=== PATIENT | female | born 1955 | race Hispanic/Latino ===

== ENCOUNTER 2019-02-28 22:56 | Emergency (ER) | payer OTHER ==
[2019-03-01] MEDS ORDERED: AZITHROMYCIN 250 MG TAB ONE (00:25)
[2019-03-01] MEDS ORDERED: ONDANSETRON 4 MG (ODT) TAB ONE (00:26)
--- NOTE | 2019-03-01 00:26 | ER ---
Nurse's Notes [facility] Name: Suri Franco Age: 63 yrs Sex: Female : 1955 Arrival Date: 02/28/2019 Time: 23:00 Bed 15 Private MD: Devonte Lerner V Diagnosis: Dizziness. Sinusitis. Low back pain Presentation: 02/28 23:28 Presenting complaint: Patient states: she has been having dizzy spells the last couple bb of days usually she takes Claritan and it goes away but it is not going away today she is also having low back pain and thinks she may be developing a fever she is taking OTC cough and cold medication but just doesn't feel well in general. Transition of care: patient was not received from another setting of care. Onset of symptoms was February 26, 2019. Risk Assessment: Do you want to hurt yourself or someone else? Patient reports no desire to harm self or others. Initial Sepsis Screen: Does the patient meet any 2 criteria? No. Patient's initial sepsis screen is negative. Does the patient have a suspected source of infection? No. Patient's initial sepsis screen is negative. Care prior to arrival: None. 23:28 Method Of Arrival: Ambulatory bb 23:28 Acuity: HANSA 3 bb Historical: - Allergies: 23:32 unknown antibiotic; bb - Home Meds: 23:32 None [Active]; bb - PMHx: 23:32 Kidney stones; bb - PSHx: 23:32 ; Hysterectomy; Lithotripsy; Kidney stents; bb - Immunization history:: Adult Immunizations up to date. - Social history:: Smoking status: Patient/guardian denies using tobacco. - Ebola Screening: : No symptoms or risks identified at this time. Screenin:45 Abuse screen: Denies threats or abuse. Nutritional screening: No deficits noted. tr5 Tuberculosis screening: No symptoms or risk factors identified. Fall Risk None identified. Assessment: 23:45 General: Appears uncomfortable, Behavior is calm, cooperative. Pain: Complains of pain tr5 in left low back and right low back Pain does not radiate. Quality of pain is described as aching, Pain began gradually, Alleviated by repositioning, Aggravated by increased activity. Neuro: Level of Consciousness is awake, alert, Oriented to person, place, time, Stock Unloader are equal bilaterally Moves all extremities. Reports dizziness, since The last few days. Cardiovascular: Heart tones present Bruits absent Capillary refill < 3 seconds Pulses are all present. Edema is absent. Respiratory: Airway is patent Trachea midline Respiratory effort is even, unlabored, Respiratory pattern is regular, symmetrical, Breath sounds are clear bilaterally. GI: Reports lower abdominal pain. : No signs and/or symptoms were reported regarding the genitourinary system. EENT: No signs and/or symptoms were reported regarding the EENT system. Derm: No signs and/or symptoms reported regarding the dermatologic system. Skin is intact, Skin is dry, Skin is normal. Musculoskeletal: Capillary refill < 3 seconds, Range of motion: intact in all extremities. 03/01 01:02 Reassessment: Patient appears in no apparent distress at this time. Patient is alert, tr5 oriented x 3, equal unlabored respirations, skin warm/dry/pink. Patient denies pain at this time. Patient states feeling better. Vital Signs: 02/28 23:32 BP 167 / 78; Pulse 72; Resp 16 S; Temp 97.8(O); Pulse Ox 100% on R/A; Weight 52.16 kg bb (R); Height 4 ft. 11 in. (149.86 cm) (R); Pain 7/10; 23:32 Body Mass Index 23.23 (52.16 kg, 149.86 cm) bb ED Course: 23:00 Patient arrived in ED. cl3 23:01 Devonte Lerner MD is Private Physician. cl3 23:16 Minh Weinberg, RN is Primary Nurse. tr5 23:31 Triage completed. bb 23:32 Arm band placed on Patient placed in an exam room, on a stretcher, on pulse oximetry. bb 23:45 Placed in gown. Bed in low position. Side rails up X 1. Pulse ox on. NIBP on. Door tr5 closed. Noise minimized. 23:45 Urine collected: clean catch specimen, clear. tr5 03/01 00:06 Osvaldo Kebede MD is Attending Physician. pkl 00:26 Devonte Lerner MD is Referral Physician. pkl 01:04 No provider procedures requiring assistance completed. IV discontinued. tr5 Administered Medications: 00:27 Drug: Antivert 25 mg Route: PO; tr5 01:04 Follow up: Response: No adverse reaction tr5 00:27 Drug: Zithromax 500 mg Route: PO; tr5 01:04 Follow up: Response: No adverse reaction tr5 00:27 Drug: Zofran 4 mg Route: PO; tr5 01:03 Follow up: Response: Nausea is decreased tr5 Outcome: 00:26 Discharge ordered by . buzz 01:04 Discharged to home ambulatory. tr5 01:04 Condition: stable 01:04 Discharge instructions given to patient, Instructed on discharge instructions, follow up and referral plans. medication usage, Demonstrated understanding of instructions, follow-up care, medications, Prescriptions given X 3. 01:05 Patient left the ED. tr5 Signatures: Osvaldo Kebede MD MD pkl Ballard, Brenda, RN RN Minh Loja RN RN tr5 Eliz Maldonado cl3
--- NOTE | 2019-03-01 00:27 | EDPHYS ---
Physician Documentation [facility] Name: Suri Franco Age: 63 yrs Sex: Female : 1955 Arrival Date: 02/28/2019 Time: 23:00 Bed 15 Private MD: Devonte Lerner V ED Physician Osvaldo Kebede HPI: 03/01 00:17 This 63 yrs old Female presents to ER via Ambulatory with complaints of Back pkl Pain, Sinus Congestion. 00:17 The patient presents with dizziness, sense of spinning. Onset: The symptoms/episode pkl began/occurred 2 day(s) ago. Associated signs and symptoms: Pertinent positives: sinus congestion and back pain. Historical: - Allergies: 02/28 23:32 unknown antibiotic; bb - Home Meds: 23:32 None [Active]; bb - PMHx: 23:32 Kidney stones; bb - PSHx: 23:32 ; Hysterectomy; Lithotripsy; Kidney stents; bb - Immunization history:: Adult Immunizations up to date. - Social history:: Smoking status: Patient/guardian denies using tobacco. - Ebola Screening: : No symptoms or risks identified at this time. ROS: 03/01 00:17 Eyes: Negative for injury, pain, redness, and discharge, ENT: Negative for injury, pkl pain, and discharge, Neck: Negative for injury, pain, and swelling, Cardiovascular: Negative for chest pain, palpitations, and edema, Respiratory: Negative for shortness of breath, cough, wheezing, and pleuritic chest pain. Abdomen/GI: Positive for nausea. Back: Positive for pain at rest. : Negative for urinary symptoms. MS/extremity: Negative for acute changes. Skin: Negative for rash. Neuro: Positive for dizziness, Negative for altered mental status. Exam: 00:17 Head/Face: Normocephalic, atraumatic. Eyes: Pupils equal round and reactive to light, pkl extra-ocular motions intact. Lids and lashes normal. Conjunctiva and sclera are non-icteric and not injected. Cornea within normal limits. Periorbital areas with no swelling, redness, or edema. ENT: Nares patent. No nasal discharge, no septal abnormalities noted. Tympanic membranes are normal and external auditory canals are clear. Oropharynx with no redness, swelling, or masses, exudates, or evidence of obstruction, uvula midline. Mucous membranes moist. Neck: Trachea midline, no thyromegaly or masses palpated, and no cervical lymphadenopathy. Supple, full range of motion without nuchal rigidity, or vertebral point tenderness. No Meningismus. Chest/axilla: Normal chest wall appearance and motion. Nontender with no deformity. No lesions are appreciated. Cardiovascular: Regular rate and rhythm with a normal S1 and S2. No gallops, murmurs, or rubs. Normal PMI, no JVD. No pulse deficits. Respiratory: Lungs have equal breath sounds bilaterally, clear to auscultation and percussion. No rales, rhonchi or wheezes noted. No increased work of breathing, no retractions or nasal flaring. Abdomen/GI: Soft, non-tender, with normal bowel sounds. No distension or tympany. No guarding or rebound. No evidence of tenderness throughout. 00:17 Back: pain, that is mild, of the lower back, Straight leg raises: of both lower extremities does not illicit pain. 00:17 Musculoskeletal/extremity: Exam is negative for acute changes. 00:17 Skin: Exam negative for rash. 00:17 Neuro: Orientation: is normal, Mentation: is normal, Cranial nerves: grossly normal, Motor: is normal. Vital Signs: 02/28 23:32 BP 167 / 78; Pulse 72; Resp 16 S; Temp 97.8(O); Pulse Ox 100% on R/A; Weight 52.16 kg bb (R); Height 4 ft. 11 in. (149.86 cm) (R); Pain 7/10; 23:32 Body Mass Index 23.23 (52.16 kg, 149.86 cm) bb MDM: 03/01 00:07 Patient medically screened. pkl 00:25 Data reviewed: vital signs, nurses notes. pkl Administered Medications: 00:27 Drug: Antivert 25 mg Route: PO; tr5 01:04 Follow up: Response: No adverse reaction tr5 00:27 Drug: Zithromax 500 mg Route: PO; tr5 01:04 Follow up: Response: No adverse reaction tr5 00:27 Drug: Zofran 4 mg Route: PO; tr5 01:03 Follow up: Response: Nausea is decreased tr5 Disposition: 03/01/19 00:26 Discharged to Home. Impression: Dizziness. Sinusitis. Low back pain. - Condition is Stable. - Prescriptions for Antivert 25 mg Oral Tablet - take 1 tablet by ORAL route every 8 hours As needed; 20 tablet. Zofran 4 mg Oral Tablet - take 1 tablet by ORAL route every 12 hours As needed; 10 tablet. Zithromax Z- Grzegorz 250 mg Oral Tablet - take 1 tablet by ORAL route as directed for 5 days Day 1 - take two (2) tablets one time. Day 2, 3, 4 , 5 take one (1) tablet once daily.; 6 tablet. - Medication Reconciliation Form, Thank You Letter, Antibiotic Education, Prescription Opioid Use form. - Follow up: Devonte Lerner MD; When: 2 - 3 days; Reason: Re-evaluation by your physician. - Problem is new. - Symptoms have improved. Signatures: Osvaldo Kebede MD MD pkl Eual Nayak, RN RN bb Minh Weinberg RN RN tr5 Corrections: (The following items were deleted from the chart) 01:05 00:26 03/01/2019 00:26 Discharged to Home. Impression: Dizziness. Sinusitis. Low back tr5 pain. Condition is Stable. Forms are Medication Reconciliation Form, Thank You Letter, Antibiotic Education, Prescription Opioid Use. Follow up: Devonte Lerner; When: 2 - 3 days; Reason: Re-evaluation by your physician. Problem is new. Symptoms have improved. pkl
[2019-03-01] MEDS ORDERED: MECLIZINE HCL 12.5 MG TAB ONE (00:29)
[2019-03-01 01:47] VITALS: BP 167/78; TEMP 97.8; O2SAT 100
== END 2019-03-01 01:05 | disposition home or self-care (01) ==
LOC: ER 22:56
DX: J32.9 Chronic sinusitis, unspecified (principal); M54.5 Low back pain; R42 Dizziness and giddiness
CPT/HCPCS: 99284

== ENCOUNTER 2020-11-29 10:17 | Emergency (ER) | payer BC, OTHER ==
[2020-11-29 11:45] LABS: Urine Blood 3+ (Negative); Urine Glucose Negative (Negative); Urine Protein 2+ (Negative); Urine pH 7.5 (5.0-7.0)
[2020-11-29 12:01] LABS: Absolute Lymphocytes (CBC) 2.8 K/uL (0.7-4.9); Basophils % 1.2 % (0-1.3); Hematocrit 39.4 % (36.0-45.0); Lymphocytes % 34.2 % (15.3-44.8); MPV 10.1 fL (7.6-11.3); RBC Red Blood Cell Count 4.53 M/uL (3.86-4.86)
[2020-11-29 12:23] LABS: ALT/SGPT 33 U/L (12-78); AST/SGOT 20 U/L (15-37); Albumin 3.9 g/dL (3.4-5.0); Alkaline Phosphatase 93 U/L (45-117); BUN Blood Urea Nitrogen 14 mg/dL (7-18); Bicarbonate 28 mmol/L (21-32); Bilirubin Direct 0.1 mg/dL (0-0.2); Bilirubin Total 0.5 mg/dL (0.2-1.0); Glucose Level 89 mg/dL (74-106); Lipase 108 U/L (73-393); Potassium 3.8 mmol/L (3.5-5.1); Protein, Total 7.8 g/dL (6.4-8.2); Sodium Level 143 mmol/L (136-145)
[2020-11-29 12:32] LABS: Urine Bacteria <20 /HPF (<20); Urine RBC >50 /HPF (NONE SEEN)
[2020-11-29 12:33] LABS: Urine Amorphous Sediment 1+ /HPF (NONE SEEN); Urine Mucus LIGHT /HPF (NONE SEEN)
--- NOTE | 2020-11-29 12:59 | RAD REPORT ---
EXAM DESCRIPTION: CT - Stone Protocol - 11/29/2020 11:47 am CLINICAL HISTORY: hematuria, hx of kidney stones COMPARISON: Abdomen Pelvis W/Wo Contrast dated 06/18/2019 TECHNIQUE: Axial 3 mm thick images were obtained without oral or IV contrast. The [id number] span s the entirety of the system including uppermost abdomen and lung bases. All CT scans are performed using dose optimization technique as appropriate and may include automated exposure control or mA/KV adjustment according to patient size. FINDINGS: In the superior right renal pelvis there is an 11-12 mm calcification not clearly differen t from 2019 imaging. In the proximal right ureter there is a 12 millimeter stone. This was previously in the inferior aspect of the right renal pelvis on the 2019 study. There is mild hydronephrosis of the pelvis and calices proximal to the ureter stone. Distally the ureter is decompressed. No addition al right-sided ureteral calculi seen. No left-sided hydronephrosis. No left-sided stone identified. N o suspicious renal masses. Isodense masses and pyelonephritis are not excluded on a stone protocol CT scan. No significant adrenal finding. No urinary bladder suspicious finding. Imaged portions of the liver, spleen and pancreas show no suspicious findings on non-contrast imaging . No gallbladder or biliary tree abnormality identified. No suspicious bowel findings. No hernia, mass or bulky lymphadenopathy noted. No free air, free fluid or inflammatory stranding. No significant bony abnormality. IMPRESSION: Mild right-sided hydronephrosis secondary to a 12 mm stone in the proximal right ureter near the UPJ. This obstructing stone was previously in the inferior aspect of the right renal pelvis on the 2019 study. Nonobstructing 11-12 mm calcification in the superior aspect of the right renal pelvis not clearly di fferent from the 2019 study. Isodense masses and pyelonephritis are not excluded on stone protocol technique.
--- NOTE | 2020-11-29 13:58 | EDPHYS ---
Physician Documentation [facility] Name: Suri Franco Age: 65 yrs Sex: Female : 1955 Arrival Date: 11/29/2020 Time: 10:22 Bed 8 Private MD: Devonte Lerner V ED Physician Cameron La HPI: 11/29 12:11 This 65 yrs old Female presents to ER via Ambulatory with complaints of Blood rn in urine. 12:11 The patient presents with urinary symptoms, hematuria. Onset: The symptoms/episode rn began/occurred 3 day(s) ago. Modifying factors: The symptoms are alleviated by nothing, the symptoms are aggravated by urinating. Associated signs and symptoms: Pertinent positives: hematuria, Pertinent negatives: fever, urinary frequency. Severity of symptoms: At their worst the symptoms were mild, in the emergency department the symptoms are unchanged. The patient has experienced similar episodes in the past. The patient has not recently seen a physician. Reports hematuria for 3-4 days, has had before, has been related to kidney stones in past, has needed lithotripsy. No fever. No vomiting. Not as painful as other times with kidney stones. . Historical: - Allergies: 10:36 Augmentin; jd3 10:36 Keflex; jd3 10:36 codeine; jd3 - Home Meds: 10:36 None [Active]; jd3 - PMHx: 10:36 Kidney stones; jd3 - PSHx: 10:36 ; Hysterectomy; Lithotripsy; Kidney stents; jd3 - Immunization history:: Adult Immunizations up to date. - Social history:: Smoking status: Patient denies any tobacco usage or history of. - Family history:: not pertinent. - Hospitalizations: : No recent hospitalization is reported. ROS: 12:11 Constitutional: Negative for fever, chills, and weight loss, Eyes: Negative for injury, rn pain, redness, and discharge, Neck: Negative for injury, pain, and swelling, Cardiovascular: Negative for chest pain, palpitations, and edema, Respiratory: Negative for shortness of breath, cough, wheezing, and pleuritic chest pain, Abdomen/GI: + suprapubic abd pain Back: + low back pain : + hematuria MS/Extremity: Negative for injury and deformity, Neuro: Negative for headache, weakness, numbness, tingling, and seizure. Exam: 12:11 Constitutional: This is a well developed, well nourished patient who is awake, alert, rn and in no acute distress. Ambulatory to room without difficulty. Head/Face: Normocephalic, atraumatic. Eyes: Periorbital areas with no swelling, redness, or edema. Cardiovascular: Regular rate and rhythm. No pulse deficits. Respiratory: No increased work of breathing, no retractions or nasal flaring. Abdomen/GI: soft, non-tender Back: No spinal tenderness. No costovertebral tenderness. Skin: Warm, dry MS/ Extremity: Pulses equal, no cyanosis. Neuro: Awake and alert, GCS 15 Vital Signs: 10:36 BP 151 / 79; Pulse 75; Resp 16; Temp 97.4(TE); Pulse Ox 100% on R/A; Weight 52.16 kg jd3 (R); Height 4 ft. 11 in. (149.86 cm) (R); Pain 4/10; 13:45 BP 156 / 62; Pulse 72; Resp 16; Pulse Ox 100% ; bp 10:36 Body Mass Index 23.23 (52.16 kg, 149.86 cm) jd3 MDM: 11:10 Patient medically screened. rn 13:23 ED course: Called Dr. Rosas for consultation, no answer, will try again shortly.. rn 13:50 Differential diagnosis: kidney stone. Data reviewed: vital signs, nurses notes, laboratory aide test result(s), radiologic studies, CT scan, and as a result, I will discharge patient. 13:52 Counseling: I had a detailed discussion with the patient and/or guardian regarding: the rn historical points, exam findings, and any diagnostic results supporting the discharge/admit diagnosis, lab results, radiology results, the need for outpatient follow up, to return to the emergency department if symptoms worsen or persist or if there are any questions or concerns that arise at home. Response to treatment: the patient's symptoms have mildly improved after treatment, and as a result, I will discharge patient. Special discussion: I discussed with the patient/guardian in detail that at this point there is no indication for admission to the hospital. It is understood, however, that if the symptoms persist or worsen the patient needs to return immediately for re-evaluation. Based on the history and exam findings, there is no indication for further emergent testing or inpatient evaluation. I discussed with the patient/guardian the need to see the urologist for further evaluation of the symptoms. ED course: Consulted with Dr. Rosas, urology, states no indication for emergent stent, but will work her into office schedule for likely outpt stent tomorrow. Patient aware and comfortable with plan. . 11/29 11:21 Order name: Basic Metabolic Panel; Complete Time: 13:10 11/29 11:21 Order name: CBC with Diff; Complete Time: 13: 11/29 11:21 Order name: Hepatic Function; Complete Time: 13: rn 11/29 11:21 Order name: Lipase; Complete Time: 13: 11/29 11:21 Order name: Urine Culture 11/29 11:21 Order name: Urine Microscopic Only; Complete Time: 13: 11/29 11:21 Order name: IV Saline Lock; Complete Time: 11:47 11/29 11:21 Order name: Labs collected and sent; Complete Time: 11:46 11/29 11:21 Order name: CT Stone Protocol; Complete Time: 13: 11/29 11:21 Order name: Urine Dipstick-Ancillary (obtain specimen); Complete Time: 11:46 11/29 11:45 Order name: Urine Dipstick-Ancillary; Complete Time: 13:10 EDMS Administered Medications: 13:50 Drug: Magnesium Sulfate 1 grams Route: IVPB; Infused Over: 1 hrs; Site: right forearm; bp 13:50 Drug: Flomax (tamsulosin) 0.4 mg Route: PO; bp Disposition: 11/29/20 13:57 Discharged to Home. Impression: Hydronephrosis with renal and ureteral calculous obstruction - 12 mm stone, Hematuria, unspecified. - Condition is Stable. - Discharge Instructions: Hematuria, Adult, Kidney Stones, Hydronephrosis. - Medication Reconciliation Form, Thank You Letter, Antibiotic Education, Prescription Opioid Use form. - Work release form (11/29/20 14:52). ak2 - Follow up: Jeffrey Rosas MD; When: Tomorrow; Reason: Recheck today's complaints, Re-evaluation by your physician. - Problem is new. - Symptoms have improved. Signatures: Dispatcher [employer] EDMS Cameron La MD MD rn Davies, Jonathon, RN RN jd3 Jonas Valenzuela RN RN bp Denzel Casey ak2 Corrections: (The following items were deleted from the chart) 14:49 13:57 11/29/2020 13:57 Discharged to Home. Impression: Hydronephrosis with renal and ak2 ureteral calculous obstruction - 12 mm stone; Hematuria, unspecified. Condition is Stable. Forms are Medication Reconciliation Form, Thank You Letter, Antibiotic Education, Prescription Opioid Use. Follow up: Jeffrey Rosas; When: Tomorrow; Reason: Recheck today's complaints, Re-evaluation by your physician. Problem is new. Symptoms have improved. rn
--- NOTE | 2020-11-29 13:58 | ER ---
Nurse's Notes [facility] Name: Suri Franco Age: 65 yrs Sex: Female : 1955 Arrival Date: 11/29/2020 Time: 10:22 Bed 8 Private MD: Devonte Lerner V Diagnosis: Hydronephrosis with renal and ureteral calculous obstruction-12 mm stone;Hematuria, unspecified Presentation: 11/29 10:33 Chief complaint: Patient states: "I had kidney stones about 3 times and I peed blood. I jd3 am urinating blood again so i am concerned about it because it has lasted for 3 days now.". Coronavirus screen: At this time, the client does not indicate any symptoms associated with coronavirus-19. Ebola Screen: Patient negative for fever greater than or equal to 101.5 degrees Fahrenheit, and additional compatible Ebola Virus Disease symptoms. Initial Sepsis Screen: Does the patient meet any 2 criteria? No. Patient's initial sepsis screen is negative. Does the patient have a suspected source of infection? No. Patient's initial sepsis screen is negative. Risk Assessment: Do you want to hurt yourself or someone else? Patient reports no desire to harm self or others. Onset of symptoms was November 26, 2020. 10:33 Method Of Arrival: Ambulatory jd3 10:33 Acuity: HANSA 3 jd3 Triage Assessment: 11:24 General: Appears in no apparent distress. comfortable, Behavior is cooperative, bp appropriate for age, anxious. Pain: Denies pain. EENT: No deficits noted. Neuro: No deficits noted. Cardiovascular: No deficits noted. Respiratory: No deficits noted. GI: No signs and/or symptoms were reported involving the gastrointestinal system. : Reports HEMATURIA. Derm: No deficits noted. Musculoskeletal: No deficits noted. Historical: - Allergies: 10:36 Augmentin; jd3 10:36 Keflex; jd3 10:36 codeine; jd3 - Home Meds: 10:36 None [Active]; jd3 - PMHx: 10:36 Kidney stones; jd3 - PSHx: 10:36 ; Hysterectomy; Lithotripsy; Kidney stents; jd3 - Immunization history:: Adult Immunizations up to date. - Social history:: Smoking status: Patient denies any tobacco usage or history of. - Family history:: not pertinent. - Hospitalizations: : No recent hospitalization is reported. Screenin:25 Abuse screen: Denies threats or abuse. Denies injuries from another. Nutritional bp screening: No deficits noted. Tuberculosis screening: No symptoms or risk factors identified. Fall Risk None identified. Assessment: 11:25 General: SEE TRIAGE NOTE. bp 13:53 Reassessment: No changes from previously documented assessment. Patient and/or family bp updated on plan of care and expected duration. Pain level reassessed. D/C ON HOLD FOR IV MAG. Vital Signs: 10:36 BP 151 / 79; Pulse 75; Resp 16; Temp 97.4(TE); Pulse Ox 100% on R/A; Weight 52.16 kg jd3 (R); Height 4 ft. 11 in. (149.86 cm) (R); Pain 4/10; 13:45 BP 156 / 62; Pulse 72; Resp 16; Pulse Ox 100% ; bp 10:36 Body Mass Index 23.23 (52.16 kg, 149.86 cm) jd3 ED Course: 10:22 Patient arrived in ED. am2 10:22 Devonte Lerner MD is Private Physician. am2 10:35 Triage completed. jd3 10:38 Arm band placed on. jd3 11:09 Cameron La MD is Attending Physician. rn 11:22 Jonas Valenzuela, AYLA is Primary Nurse. bp 11:25 Patient has correct armband on for positive identification. Bed in low position. Call bp light in reach. Side rails up X2. 11:38 Inserted saline lock: 20 gauge in right forearm, using aseptic technique. Blood bp collected. 11:47 CT Stone Protocol In Process Unspecified. EDMS 13:56 Jeffrey Rosas MD is Referral Physician. rn 14:48 No provider procedures requiring assistance completed. IV discontinued. ak2 Administered Medications: 13:50 Drug: Magnesium Sulfate 1 grams Route: IVPB; Infused Over: 1 hrs; Site: right forearm; bp 13:50 Drug: Flomax (tamsulosin) 0.4 mg Route: PO; bp Outcome: 13:57 Discharge ordered by MD. rn 14:48 Discharged to home ambulatory. ak2 14:48 Condition: stable 14:48 Discharge instructions given to patient, Instructed on discharge instructions, follow up and referral plans. Demonstrated understanding of instructions, follow-up care. 14:49 Patient left the ED. ak2 Signatures: Dispatcher [employer] EDMS Cameron La MD MD rn Moreno, Amanda am2 Amado Iniguez RN RN jJonas Hogan RN RN Denzel Mcfarlane2 Corrections: (The following items were deleted from the chart) 10:35 10:33 Onset of symptoms was November 28, 2020 jd3 jd3 10:38 10:36 Pulse 75bpm; Resp 16bpm; Pulse Ox 100% RA; Temp 97.4F Temporal; 52.16 kg jd3 Reported; Height 4 ft. 11 in. Reported; BMI: 23.2; Pain 4/10; jd3
[2020-11-29] MEDS ORDERED: TAMSULOSIN 0.4 MG SR CAP ONE (14:04)
[2020-11-29] MEDS ORDERED: MAGNESIUM SULFATE 1 gm IVPB 1 GM/100 ML BAG IV ONE (14:04)
[2020-11-29 14:56] VITALS: TEMP 97.4; O2SAT 100
[2020-11-29 14:57] VITALS: BP 156/62
== END 2020-11-29 14:49 | disposition home or self-care (01) ==
LOC: ER 10:17
DX: N13.2 Hydronephrosis with renal and ureteral calculous obstruction (principal); Z87.442 Personal history of urinary calculi; Z88.1 Allergy status to other antibiotic agents; Z88.5 Allergy status to narcotic agent
CPT/HCPCS: 87088; 85025; 87086; 80048; 36415; 80076; 83690; 76377; 74176; 96374; 99284; J3475; 81003; 81015

== ENCOUNTER 2020-12-07 07:56 | Day surgery (SDC) | payer BC, OTHER ==
[2020-12-06 10:39] LABS: Basophils % 0.8 % (0-1.3); Hematocrit 40.4 % (36.0-45.0); MPV 9.7 fL (7.6-11.3); RBC Red Blood Cell Count 4.59 M/uL (3.86-4.86)
--- NOTE | 2020-12-06 10:41 | RAD REPORT ---
EXAM DESCRIPTION: Walker Tsang (2 Views)12/06/2020 10:28 am CLINICAL HISTORY: Preop for genitourinary surgery. COMPARISON: 2018 FINDINGS: The lungs appear clear of acute infiltrate. The heart is normal size IMPRESSION: No acute abnormalities displayed
[2020-12-06 10:50] LABS: Potassium 4.4 mmol/L (3.5-5.1)
[2020-12-07] MEDS ORDERED: Gentamicin Inj 120 MG in NA CHLORIDE 0.9% 100 ML IV ONE (08:00)
[2020-12-07] MEDS ORDERED: Ringers Lactate 1,000 ML IV ONE (08:56)
[2020-12-07] MEDS ORDERED: propofoL 200 MG/20 ML VIAL IV ONE (10:29)
[2020-12-07] MEDS ORDERED: MIDAZOLAM HCL 2 MG/2 ML INJ ONE (10:30)
[2020-12-07] MEDS ORDERED: FENTANYL CITR 100 MCG/2 ML ONE (10:30)
[2020-12-07] MEDS ORDERED: LIDOCAINE 1% MPF 5 ML VIAL ONE (10:30)
[2020-12-07] MEDS ORDERED: ONDANSETRON 4 MG/2 ML VIAL ONE (10:35)
[2020-12-07] MEDS ORDERED: dexAMETHasone 10 MG/ML VIAL ONE (10:35)
[2020-12-07] MEDS ORDERED: KETOROLAC 30 MG/ML INJ ONE (10:35)
[2020-12-07] MEDS ORDERED: PHENAZOPYRIDINE 100MG TAB PO ONE ×2 (10:45→12:25)
[2020-12-07] MEDS ORDERED: HYDROCODONE/APAP 5/325 MG TAB PO PRN (10:45)
--- NOTE | 2020-12-07 10:51 | RAD REPORT ---
EXAM DESCRIPTION: RAD - Urography Retrograde - 12/07/2020 10:37 am FINDINGS: There were 5 portable KUB images were obtained during fluoroscopic assisted placement of a stent. No suspicious or unexpected finding. Fluoro time was 9 seconds.
[2020-12-07] MEDS ORDERED: NALOXONE 0.4 MG/ML VIAL ONE (11:03)
--- NOTE | 2020-12-07 11:11 | OP ---
Surgeon: JUANJO GARCIA Preoperative Diagnoses: 1. Right obstructive ureterolithiasis. 2. Right nephrolithiasis. 3. Right hydronephrosis. Postoperative Diagnoses: 1. Right obstructive ureterolithiasis. 2. Right nephrolithiasis. 3. Right hydronephrosis. Principal Procedures: 1. Cystoscopy. 2. Right retrograde pyelography. 3. Right ureteral stent placement. Date of Procedure: 12/07/20 Indication For Procedure: Ms. Franco presented to the Urology Clinic where she was seen by nurse practitioner, Blanca, with complaints of gross hematuria. Imaging revealed the presence of obstructive ureteral calculi, and as a result the patient was recommended for operative evaluation via cystoscopy with management of her stones on the right side. Because the stones were 12 mm within the kidney and 8 mm within the proximal ureter, I recommended against definitive ureteroscopic management today and instead placement of a stent to allow the system to dilate to minimize the risk of injury due to the need to fragment over or approximately 20 mm of stone burden. Procedure In Detail: The patient was consented in the preoperative holding area before being transferred to the operative suite where general anesthesia using an LMA was induced. She was given gentamicin IV antimicrobial prophylaxis and pneumo boots were provided for DVT prophylaxis. She was placed in the lithotomy position, padded and secured to the table appropriately. Her genitalia were prepped using Hibiclens and she was draped in standard fashion. The case was begun using a 22-Syrian rigid cystoscope to traverse the urethra and into the bladder with ease. The bladder was then surveyed in its entirety, and there were no mucosal lesions, foreign bodies, or stones. There were micro hemorrhagic papules in the dome anterior region to the right, but these were not at all suspicious in appearance and were few and scattered. As a result, I identified the ureteral orifice, which was orthotopic within the trigone on the right side, and I cannulated it using the tip of a 5-Syrian ureteral access catheter. I then injected a 70:30 mixture of Omnipaque and saline and performed a retrograde pyelogram. Right retrograde pyelography: Using the contrast mixture and the 5-Syrian ureteral access catheter, the contrast mixture was injected and did evidence obstruction given its slow progression up a dilated distal into a mid and proximal ureter before encountering a radio-opaque calculus in the proximal ureter. An additional calculus was noted within the upper pole of the kidney and was also visible fluoroscopically. Contrast did enter a very dilated renal pelvis with pelviectasis and evidence of caliectasis. As a result, I did pass a Sensor wire via the 5-Syrian ureteral access catheter into the upper pole of the kidney where a coil was observed fluoroscopically. Over the Sensor wire, I passed a 6- Syrian by 24 cm double-J right ureteral stent with a coil observed fluoroscopically in the upper pole and 1 cystoscopically within the bladder. Her bladder was then decompressed of fluid and urine, and the scope was removed. She was taken out of the lithotomy position, awakened from general anesthesia, transferred to a stretcher, and then transferred to the recovery room in good condition. Complications: None. Discharge Disposition: She should follow up in the Urology Clinic with nurse practitioner, Blanca or myself to discuss next steps. I believe she would be a reasonable candidate for shockwave lithotripsy/ESWL since both calculi are of significant size and are radio-opaque. She should be informed of the 85% success usually associated with the stones, however should she elect to proceed with definitive ureteroscopy that is completely reasonable as well. CHELLE/RENETTA Voice ID: [id number] Report ID: [id number] KIMBERLY
[2020-12-07 12:38] VITALS: BP 155/72; TEMP 96.6; O2SAT 98
[2020-12-07] MEDS ORDERED: TRAMADOL HCL 50 MG TAB ONE (12:42)
== END 2020-12-07 13:10 | disposition home or self-care (01) ==
LOC: OR 07:56
PROVIDERS: ATTEND Urology
PROC: 0T768DZ Dilation of Right Ureter with Intraluminal Device, Via Natural or Artificial Opening Endoscopic (ICD-10-PCS; principal; 2020-12-07 09:15)
DX: N13.2 Hydronephrosis with renal and ureteral calculous obstruction (principal); Z20.822 Contact with and (suspected) exposure to COVID-19
CPT/HCPCS: 93005; 87088; 85025; 87086; 80048; 36415; 85610; 85730; 71046; 74420; 52332; U0003; J2704; J2310; J1580; J2250; J3010; J1100; J7120; J2405

== ENCOUNTER 2021-01-25 08:50 | Day surgery (SDC) | payer BC ==
[~2021-01-25 08:50] MED LIST: Gentamicin Inj 120 MG in NA CHLORIDE 0.9% 100 ML IVPB SCH
[2021-01-25] MEDS ORDERED: Ringers Lactate 1,000 ML IV ONE (09:24)
[2021-01-25] MEDS ORDERED: FENTANYL CITR 100 MCG/2 ML ONE (09:37)
[2021-01-25] MEDS ORDERED: MIDAZOLAM HCL 2 MG/2 ML INJ ONE (09:37)
[2021-01-25] MEDS ORDERED: LIDOCAINE 2% MPF 5 ML VIAL ONE (09:37)
[2021-01-25] MEDS ORDERED: propofoL 200 MG/20 ML VIAL IV ONE (09:37)
[2021-01-25] MEDS ORDERED: ONDANSETRON 4 MG/2 ML VIAL ONE (09:39)
[2021-01-25] MEDS ORDERED: dexAMETHasone 10 MG/ML VIAL ONE (09:39)
[2021-01-25] MEDS ORDERED: CODEINE 30MG/APAP 300MG TAB PO PRN (10:53)
[2021-01-25] MEDS ORDERED: EPHEDRINE SULF 50 MG/ML VIAL ONE (11:20)
[2021-01-25] MEDS: HYDROMORPHONE HCL 1 MG/ML INJ ONE ×2 (11:43→11:53)
[2021-01-25] MEDS ORDERED: TRAMADOL HCL 50 MG TAB PO ONE ×2 (12:06→12:55)
[2021-01-25 12:44] VITALS: BP 154/67; TEMP 97.2; O2SAT 99
[2021-01-25] MEDS ORDERED: TRAMADOL HCL 50 MG TAB ONE (13:15)
--- NOTE | 2021-01-26 08:19 | OP ---
Date of Procedure: 01/25/2021 Surgeon: JUANJO GARCIA Preoperative Diagnosis: Right nephroureterolithiasis. Postoperative Diagnosis: Right nephroureterolithiasis Principle Procedure: Right extracorporeal shockwave lithotripsy. Indication For Procedure: Ms. Franco presented to the Urology Clinic with an obstructing 12 mm right ureteral calculus. She underwent right ureteral stent placement at the end of November due to persistent pain and the associated presence of an additional 12 mm calculi in the kidney. Because of the exten sive stone burden, a stent was recommended to be placed first with subsequent definitive treatment th ereafter. She presents today for right ESWL, and we will start with the ureteral calculus first. Procedure In Detail: The patient was consented in the preoperative holding area before being transfe rred to the operative suite where general anesthesia was induced. She was given gentamicin 120 mg IV antimicrobial prophylaxis because of her allergy to penicillin. Pneumoboots were provided for DVT p rophylaxis. She was placed supine on the shockwave lithotripsy table, padded, and secured appropriat ari. A fluid bath was placed beneath her flank region, and the stone in the right ureter was targete d. Of note, the stone which was previously at the body of L3, had descended along the stent down to the body of L4. Initial shockwave lithotripsy was then begun at low power and increasing the power a nd the rate over time to an average power setting of 5.5 with occasional bouts of treatment at 6 and a brief treatment period at 7. Because of ectopy that was noted with her being treated at a power se tting of 7, the power was back down to 5.5. Interval reassessment was performed at 1000 shocks, 1650 shocks, 2000 shocks, and again, at 2500 shocks. The stone was noted to fragment significantly, alth ough it is unclear if it completely fragmented. As such, after a delivery of 2500 shocks, additional treatment of the stone in the kidney would be planned for a later time. As a result, the patient wa s awakened from general anesthesia, transferred to a stretcher, and then transferred to the recovery room in good condition. Complications: None. Discharge Disposition: She will follow up in the Urology Clinic with nurse practitioner, kulwant Rios here an interval assessment may be made with a KUB; however, since she still has a 12 mm calculus wit hin the kidney and will require definitive management of this, and because repeat stone treatment ope ratively will be required, she should be rescheduled for either right ESWL if the stone in the ureter has been completely treated, this to treat the kidney stone, or alternatively, we could plan right u reteroscopy with laser lithotripsy and stent exchange at that time. The difference being the likelih ood of definitive resolution of the stone burden via ureteroscopy being over 95%, whereas that of [place] ckwave lithotripsy of the stone in the kidney if the stone in the ureter has been successfully treate d already, would be approximately 85%. CHELLE/RENETTA Voice ID: [id number] Report ID: [id number]
== END 2021-01-25 14:00 | disposition home or self-care (01) ==
LOC: OR 08:50
PROVIDERS: ATTEND Urology
PROC: 0TF6XZZ Fragmentation in Right Ureter, External Approach (ICD-10-PCS; principal; 2021-01-25 10:30)
DX: N20.2 Calculus of kidney with calculus of ureter (principal)
CPT/HCPCS: 50590; 87086; 87088; J1100; J1170; J1580; J2250; J2405; J2704; J3010; J7120

== ENCOUNTER → 2021-02-15 | Day surgery (SDC) | payer BC, OTHER ==
[~2021-02-15] MED LIST changes: +CLINDAMYCIN INJ 600 MG in NA CHLORIDE 0.9% 50 ML IV ONE; +CODEINE 30MG/APAP 300MG TAB PO PRN; +FENTANYL CITR 100 MCG/2 ML ONE; +Gentamicin Inj 120 MG in NA CHLORIDE 0.9% 100 ML IV ONE; -Gentamicin Inj 120 MG in NA CHLORIDE 0.9% 100 ML IVPB SCH; +LIDOCAINE 1% MPF 5 ML VIAL ONE; +MIDAZOLAM HCL 2 MG/2 ML INJ ONE; +Mastisol Adhesive Liq ONE; +ONDANSETRON 4 MG/2 ML VIAL ONE; +PHENAZOPYRIDINE 100MG TAB PO ONE; +Phenylephrine HCl 10 MG/ML 1 ML VIAL ONE; +Ringers Lactate 1,000 ML IV ONE; +propofoL 200 MG/20 ML VIAL IV ONE
[2021-02-15] MEDS: MORPHINE 4 MG/ML SYR ONE ×2 (15:20→15:30)
--- NOTE | 2021-02-15 15:20 | RAD REPORT ---
EXAM DESCRIPTION: RAD - Urography Retrograde - 02/15/2021 3:00 pm CLINICAL HISTORY: STENT COMPARISON: Urography Retrograde dated 12/07/2020 FINDINGS: Total fluoro time: 15 seconds
--- NOTE | 2021-02-15 15:49 | OP ---
Date of Procedure: 02/15/2021 Surgeon: JUANJO GARCIA Preoperative Diagnosis: Right nephrolithiasis. Postoperative Diagnosis: Right nephroureterolithiasis. Principle Procedures: 1.Cystoscopy. 2.Right ureteroscopy with laser lithotripsy. 3.Right ureteral stent exchange. Indication For Procedure: Ms. Franco presented to the Urology Clinic yesterday having undergone a pr ior ESWL of a large proximal ureteral calculus with successful fragmentation. She complained of pers istent discomfort associated with the stent, but no fever or chills or significant dysuria. She simp ly wanted to know if the procedure could be expedited and so she was scheduled for today. Procedure In Detail: The patient was consented in the preoperative holding area before being transfe rred to the operative suite where general anesthesia was induced. She was given clindamycin and gent amicin 140 mg IV antimicrobial prophylaxis given her penicillin allergy. Pneumo boots were provided for DVT prophylaxis. She was in the lithotomy position, padded and secured to the table appropriatel y. Her genitalia were prepped using Hibiclens and draped in standard fashion. The case was begun us ing a 22-Omani rigid cystoscope to traverse the urethra and into the bladder with ease. The bladder was surveyed, and no obvious mucosal lesions, foreign bodies or stones were noted. The right ureter al stent was noted to emanate from the right ureteral orifice and the coil was grasped and delivered to the meatus with ease. The tip of the stent remained within the proximal ureter, and a Sensor wire was passed via the stent and did coil in the putative upper pole of the kidney as observed fluorosco pically. I then passed a ureteral access sheath over the indwelling safety wire and was able to darshan gate it all the way into the renal pelvis. I then performed a retrograde pyelogram confirming approp riate localization of the contrast within the pelvis and calices. The stone was fluoroscopically vis ible within the upper pole calyceal distribution. Then, I passed a flexible ureteroscope via the ure teral access sheath into the upper pole of the kidney and identified the stone, which was about 11 mm in diameter essentially emanating from an interpolar calyceal region as a large Amol's plaque. I then was able to quickly fragment the stone into dust and released off its Amol's plaque location using a holmium laser fiber at a power setting 0.8 joules and 15 hertz. I then surveyed the remaind er of the calices, and no additional stones were noted. The renal pelvis was also free of any signif icant stone fragments, and so I surveyed into the proximal ureter and within the proximal mid ureter medially, there was a remnant linear calcification about 6 mm in length by 1 mm in diameter likely re sidual from the prior shockwave lithotripsy of the stone in that region. I was able to dislodge that stone debris from its area within the mid proximal ureter and was able to finagle it to come out of the ureteral access sheath with irrigation. Once this was done, I then again surveyed into the renal pelvis and calices and back out the ureter for any additional significant stone fragments, and when none were noted, ureteroscopy and laser lithotripsy were discontinued. I then passed a Sensor wire i nto the upper pole via the ureteroscope under direct vision, and removed the ureteroscope leaving the Sensor wire in place. I then back-loaded the cystoscope over the indwelling Sensor wire and passed a 6-Omani by 24 cm double-J right ureteral stent. The stent was left on its tether, and a coil was observed fluoroscopically within the kidney. An additional coil was formed in the bladder and the te ther was secured to her introitus using Mastisol and Steri-Strips. Her bladder was decompressed and the patient was taken out of the lithotomy position. She was awakened from general anesthesia, trans ferred to a stretcher, and then transferred to the recovery room in good condition. Complications: None. Discharge Disposition: She should follow up in the Urology Clinic with nurse practitionerBlanca next week for tethered ureteral stent removal. As she is a recurrent stone former, she should underg o metabolic stone analysis with 2 x 24-hour urine study and blood work to decipher why she formed stone s and prohibited. WR/MODL Voice ID: [id number] Report ID: [id number]
[2021-02-15] MEDS: HYDROMORPHONE HCL 1 MG/ML INJ ONE ×2 (16:00→16:05)
[2021-02-15 16:05] VITALS: TEMP 97
[2021-02-15 16:46] VITALS: BP 130/77; O2SAT 99
== END | disposition home or self-care (01) ==
LOC: OR 08:22
PROVIDERS: ATTEND Urology
PROC: 0T768DZ Dilation of Right Ureter with Intraluminal Device, Via Natural or Artificial Opening Endoscopic (ICD-10-PCS; 2021-02-15)
PROC: 0TF68ZZ Fragmentation in Right Ureter, Via Natural or Artificial Opening Endoscopic (ICD-10-PCS; principal; 2021-02-15 12:30)
DX: N20.0 Calculus of kidney (principal); E78.5 Hyperlipidemia, unspecified; Z20.822 Contact with and (suspected) exposure to COVID-19; Z88.0 Allergy status to penicillin; Z88.3 Allergy status to other anti-infective agents; Z88.1 Allergy status to other antibiotic agents
CPT/HCPCS: 88300; 82360; 74420; 52356; U0003; J2704; J2370; J1580; J2250; J3010; J1170; J7120 ×2; J2405

== ENCOUNTER 2022-01-08 12:19 | Emergency (ER) | payer BC, OTHER ==
--- OUTSIDE RECORDS SUMMARY | 2022-01-08 12:23 | XMS REPORT | Continuity of Care Document ---
:1955 Author Organization [facility] t Address [address] [place] [address] Care Team Providers Name Role Phone GENO Primary Care Physician Unavailable Parish IVERSON Attending Clinician Unavailable Zayra CANALES L Attending Clinician Parish IVERSON Admitting Clinician Unavailable Payers Payer Name Policy Type Policy Number Effective Date Expiration Date S [facility] - [id number] 2020 00:00:00 OUT OF STATE Problems Condition Condition Condition Status Onset Resolution Last Treating Co mments Source Name Details Category Date Date Treatment Clinician Date No known No known Disease Unive rs active active ity of problems problems [facility] Allergies, Adverse Reactions, Alerts Allergy Allergy Status Severity Reaction(s) Onset Inactive Treating Comm ents Source Name Type Date Date Clinician AMOXICIL DRUG Active N/V Univers JAY JAY-POT 08-04 ity of CLAVULAN 00:00: [place] ATE 00 [facility] CODEINE DRUG Active ITCHING Univers INGREDI - ity of 00:00: [place] 00 [facility] CEPHALEX DRUG Active Other-Cmnt Univ ers IN INGREDI 08-04 ity of 00:00: [address] NO KNOWN Drug Active Univers ALLERGIE Class ity of S [facility] Social History Social Habit Start Date Stop Date Quantity Comments Source Exposure to Not sure [facility] SARS-CoV-2 (event) Medica l Branch Sex Ass[birth year] [facility] [place] 00:00:00 00:00:00 Medical [place] Smoking Status Start Date Stop Date Source Unknown if ever smoked [facility] Medical Branch Medications Ordered Filled Start Stop Current Ordering Indication Dosage Frequency Signature Comments Components Source Medication Medication Date Date Medication? Clinician (SIG) Name Name metroNIDAZO 2020-07 Yes Univer s LE 500 mg 2-01 ity of tablet 00:00: [address] metroNIDAZO 2020-07 Yes Univer s LE 500 mg 2-01 ity of tablet 00:00: [address] metroNIDAZO 2020-07 Yes Univer s LE 500 mg 2-01 ity of tablet 00:00: [address] famotidine 2020-07 Yes Univers 20 mg 1-15 ity of tablet 00:00: [address] gabapentin 2020-07 Yes Univers 100 mg 1-15 ity of capsule 00:00: [address] omeprazole 2020-07 Yes Univers 20 mg 1-15 ity of capsule 00:00: [address] famotidine 2020-07 Yes Univers 20 mg 1-15 ity of tablet 00:00: [address] gabapentin 2020-07 Yes Univers 100 mg 1-15 ity of capsule 00:00: [address] omeprazole 2020-07 Yes Univers 20 mg 1-15 ity of capsule 00:00: [address] famotidine 2020-07 Yes Univers 20 mg 1-15 ity of tablet 00:00: [address] gabapentin 2020-07 Yes Univers 100 mg 1-15 ity of capsule 00:00: [address] omeprazole 2020-07 Yes Univers 20 mg 1-15 ity of capsule 00:00: [address] metoclopram 2020-07 Yes Univer s rosio HCl 10 0-19 ity of mg tablet 00:00: [address] SUTAB 2020-07 Yes Univers 1.479-0.188 0-19 ity of - 0.225 00:00: [facility] Medical Branch metoclopram 2020-07 Yes Univer s rosio HCl 10 0-19 ity of mg tablet 00:00: [address] SUTAB 2020-07 Yes Univers 1.479-0.188 0-19 ity of - 0.225 00:00: [place] gram Tab 00 [facility] Branch metoclopram 2020-07 Yes Univer s rosio HCl 10 0-19 ity of mg tablet 00:00: [place] 00 [facility] Branch SUTAB 2020-07 Yes Univers 1.479-0.188 0-19 ity of - 0.225 00:00: [place] gram Tab 00 Medical Branch Vital Signs Vital Name Observation Time Observation Value Comments Source Systolic blood 2021-06-23 14:24:00 151 mm[Hg] Univer sity [facility] Diastolic blood 2021-06-23 14:24:00 77 [facility]Hg[facility] 2021-06-23 14:24:00 82 /min [facility] Body height 2021-06-23 14:24:00 149.9 cm [facility] Body weight 2021-06-23 14:24:00 51.71 kg [facility] BMI 2021-06-23 14:24:00 23.03 kg/m2 [facility] Procedures This patient has no known procedures. Encounters Start End Encounter Admission Attending Care Care Encounter Source Date/Time Date/Time Type Type Clinicians Facility Department ID 2021-08-17 Outpatient STLMLC STLMLC [id number] Common 13:31:51 [id number] [facility] 2021-08-17 Outpatient STLMLC STLMLC [id number] Common 13:25:38 [id number] [facility] 2021-08-17 Outpatient STLMLC STLMLC [id number] Common 13:03:46 [id number] [facility] 2021-08-17 Outpatient STLMLC STLMLC [id number] Common 13:02:06 [id number] [facility] 2021-08-04 2021-08-04 Outpatient Mandy IVERSON [facility] [id number] Univers 10:45:00 10:45:00 DIPTI [id number] [facility] 2021-08-04 2021-08-04 Outpatient Mandy IVERSON [facility] [id number] Univers 10:45:00 [facility]45[facility] 2021-07-28 Outpatient R ZAYRA [facility] [id number] Univers 10:00:00 10:00:00 DIPTI alfred [facility] 2021-07-28 2021-07-28 Outpatient R IVERSON, [facility] [id number] Univers 10:00:00 10:00:00 [id number]-07-[facility] 2021-07-28 Outpatient R ZAYRA [facility] [id number] Univers 10:00:00 10:00:00 DIPTI alfred [facility] 2021-07-20 2021-07-20 Outpatient Mandy ZAYRA [facility] [id number] Univers 10:57:21 23:59:00 DIPTI [facility] 2021-07-20 2021-07-20 [facility] [id number] Univers 10:57:21 23:59:00 Encounter Dipti Lugo [place] [id number] [facility] [id number] [facility] [id number] [facility] 804 Branch 2021-07-20 2021-07-20 Outpatient R ZAYRA [facility] [id number] Univers 11:00:00 11:00:00 DIPTI [id number] [facility] 2021-07-12 2021-07-12 Outpatient Mandy IVERSON [facility] [id number] Univers 13:00:00 13:00:00 DIPTI [id number] [facility] 2021-07-12 2021-07-12 Outpatient Mandy IVERSON [facility] [id number] Univers 00:00:00 00:00:00 DIPTI [facility] 2021-07-08 2021-07-08 Outpatient R ZAYRA [facility] [id number] Univers 10:00:00 10:00:00 DIPTI [id number] [facility] 2021-07-08 2021-07-08 Outpatient Mandy IVERSON [facility] [id number] Univers 00:00:00 00:00:00 DIPTI [facility] 2021-06-23 2021-06-23 Outpatient R ZAYRA [facility] [id number] [facility] 08:30:00 23:59:00 DIPTI osborne [facility] 2021-06-23 2021-06-23 Office Zayra [facility] [id number] [facility] 08:20:02 08:59:25 Visit Dipti [facility] [id number] it y of [place] [id number] Ivan as NAIDA?BLEA [id number] Dc adelaide BURDEN [address] [place] [address] MEDICAL OFFICE BUILDING Results This patient has no known results.
[2022-01-08 12:57] LABS: Urine Blood 1+ (Negative); Urine Glucose Negative (Negative); Urine Protein Negative (Negative)
[2022-01-08 13:02] LABS: Absolute Lymphocytes (CBC) 2.4 K/uL (0.7-4.9); Hematocrit 41.8 % (36.0-45.0); Lymphocytes % 23.4 % (15.3-44.8); MPV 9.5 fL (7.6-11.3)
[2022-01-08 13:07] LABS: Urine Bacteria <20 /HPF (<20); Urine Mucus LIGHT /HPF (NONE SEEN); Urine RBC <5 /HPF (NONE SEEN)
[2022-01-08 13:19] LABS: Albumin 3.9 g/dL (3.4-5.0); Bilirubin Total 0.9 mg/dL (0.2-1.0); Potassium 3.7 mmol/L (3.5-5.1); Protein, Total 8.4 g/dL (6.4-8.2); Troponin High Sensitivity 4.1 pg/mL (<58.9)
[2022-01-08] MEDS ORDERED: NA CHLORIDE 0.9% 1,000 ML ONE (13:52)
[2022-01-08] MEDS ORDERED: ONDANSETRON 4 MG/2 ML VIAL ONE (13:52)
[2022-01-08] MEDS ORDERED: MORPHINE 4 MG/ML SYR ONE (13:52)
--- NOTE | 2022-01-08 14:02 | RAD REPORT ---
EXAM DESCRIPTION: CTAbdomen Pelvis W Contrast - 01/08/2022 1:52 pm CLINICAL HISTORY: LUQ abdominal pain COMPARISON: Stone Protocol dated 11/29/2020 TECHNIQUE: CT of the abdomen and pelvis was performed. All CT scans are performed using dose optimization technique as appropriate and may include automated exposure control or mA/KV adjustment according to patient size. FINDINGS: Lower chest: No acute abnormality. Small hiatal hernia Liver: No acute abnormality or suspicious lesions. Biliary: No biliary ductal dilatation. Stomach: No significant focal abnormality. Duodenum: No significant focal abnormality. Pancreas: No significant abnormality. Spleen: No significant abnormality. Adrenal: No suspicious lesions. Kidney/ureter: No hydronephrosis. No renal calculi. Retroperitoneum: No retroperitoneal adenopathy. Vascular: No aneurysm. Atherosclerosis. Bowel: Sigmoid diverticulitis. No perforation or abscess.. Peritoneum: No ascites or free air. Bladder: Grossly unremarkable. Reproductive: No adnexal masses. Bones: No acute fracture. Multilevel degenerative changes are present in the spine. Other: n/a IMPRESSION: Non perforated sigmoid diverticulitis.
[2022-01-08] MEDS ORDERED: CIPROFLOXACIN 400mg IV 400 MG/200 ML BAG IV ONE (14:49)
[2022-01-08] MEDS ORDERED: METRONIDAZOLE 500mg IVPB 500 MG/100 ML BAG IV ONE (14:49)
--- NOTE | 2022-01-08 15:10 | EDPHYS ---
Physician Documentation [facility] Name: Suri Franco Age: 66 yrs Sex: Female : 1955 Arrival Date: 01/08/2022 Time: 12:21 Bed 14 Private MD: Devonte Lerner V ED Physician Sheri Champion HPI: 01/08 13:35 This 66 yrs old Female presents to ER via Ambulatory with complaints of ma2 Abdominal Pain. 13:35 Onset: The symptoms/episode began/occurred gradually, 2 day(s) ago. Associated signs ma2 and symptoms: Pertinent negatives: anorexia, constipation, dysuria, headache, vomiting, vomiting blood. Severity of pain: At its worst the pain was moderate in the emergency department the pain is unchanged. Historical: - Allergies: 12:39 Augmentin; ss 12:39 Codeine; ss 12:39 Keflex; ss - PMHx: 12:39 Kidney stones; ss - Immunization history:: Adult Immunizations up to date. - Social history:: Patient/guardian denies using alcohol, street drugs, The patient lives with family, with spouse, Smoking status: Patient denies any tobacco usage or history of. - Family history:: not pertinent. ROS: 13:35 Constitutional: Negative for fever, chills, and weight loss. ma2 13:35 All other systems are negative. Exam: 13:35 Constitutional: This is a well developed, well nourished patient who is awake, alert, ma2 and in no acute distress. ENT: Nares patent. No nasal discharge, no septal abnormalities noted. Tympanic membranes are normal and external auditory canals are clear. Oropharynx with no redness, swelling, or masses, exudates, or evidence of obstruction, uvula midline. Mucous membranes moist. Neck: Trachea midline, no thyromegaly or masses palpated, and no cervical lymphadenopathy. Supple, full range of motion without nuchal rigidity, or vertebral point tenderness. No Meningismus. Chest/axilla: Normal chest wall appearance and motion. Nontender with no deformity. No lesions are appreciated. Cardiovascular: Regular rate and rhythm with a normal S1 and S2. No gallops, murmurs, or rubs. Normal PMI, no JVD. No pulse deficits. Respiratory: Lungs have equal breath sounds bilaterally, clear to auscultation and percussion. No rales, rhonchi or wheezes noted. No increased work of breathing, no retractions or nasal flaring. Abdomen/GI: Soft, non-tender, with normal bowel sounds. No distension or tympany. No guarding or rebound. No evidence of tenderness throughout. Back: No spinal tenderness. No costovertebral tenderness. Full range of motion. Skin: Warm, dry with normal turgor. Normal color with no rashes, no lesions, and no evidence of cellulitis. MS/ Extremity: Pulses equal, no cyanosis. Neurovascular intact. Full, normal range of motion. Neuro: Awake and alert, GCS 15, oriented to person, place, time, and situation. Cranial nerves II-XII grossly intact. Motor strength 5/5 in all extremities. Sensory grossly intact. Cerebellar exam normal. Normal gait. Vital Signs: 12:38 BP 112 / 74; Pulse 74; Resp 16; Temp 97.8(TE); Pulse Ox 98% on R/A; Weight 51.71 kg; ss Height 4 ft. 11 in. (149.86 cm); Pain 7/10; 14:00 BP 112 / 72; Pulse 75; Resp 16; Pulse Ox 98% on R/A; ph 15:30 BP 110 / 72; Pulse 78; Resp 18; Pulse Ox 99% on R/A; ph 16:40 BP 108 / 72; Pulse 76; Resp 18; Temp 98.0; Pulse Ox 99% on R/A; ph 12:38 Body Mass Index 23.02 (51.71 kg, 149.86 cm) MDM: 13:33 Patient medically screened. wi2 13:35 Differential diagnosis: gastroesophageal reflux disease, Irritable bowel syndrome, ma2 pancreatitis. 15:09 Data reviewed: vital signs, nurses notes. Counseling: I had a detailed discussion with ma2 the patient and/or guardian regarding: the historical points, exam findings, and any diagnostic results supporting the discharge/admit diagnosis, the presence of at least one elevated blood pressure reading (>120/80) during this emergency department visit, the need for outpatient follow up. Response to treatment: the patient's symptoms have markedly improved after treatment. 01/08 12:31 Order name: CBC with Diff; Complete Time: 14:09 [facility] 01/08 12:31 Order name: CMP; Complete Time: 14:09 [facility] 01/08 12:31 Order name: Lipase; Complete Time: 14:09 [facility] 01/08 12:31 Order name: Urine Microscopic Only; Complete Time: 14:09 [facility] 01/08 12:31 Order name: Troponin High Sensitivity; Complete Time: 14:09 [facility] 01/08 12:57 Order name: Urine Dipstick-Ancillary; Complete Time: 14:09 [facility] 01/08 12:31 Order name: IV Saline Lock; Complete Time: 12:51 [facility] 01/08 13:10 Order name: Urine Culture [facility] 01/08 13:24 Order name: CT Abd/Pelvis - IV Contrast Only; Complete Time: 14:09 [facility] 01/08 12:31 Order name: Labs collected and sent; Complete Time: 12:51 [facility] 01/08 12:31 Order name: Urine Dipstick-Ancillary (obtain specimen); Complete Time: 12:59 ma2 Administered Medications: 14:18 Drug: NS 0.9% 1000 ml Route: IV; Rate: 1 bolus; Site: right antecubital; ph 16:42 Follow up: IV Status: Completed infusion ph 14:18 Drug: Zofran (Ondansetron) 4 mg Route: IVP; Site: right antecubital; ph 14:57 Follow up: Response: No adverse reaction ph 14:20 Drug: morphine 4 mg Route: IVP; Infused Over: 4 mins; Site: right antecubital; ph 14:55 Follow up: Response: No adverse reaction ph 14:55 Drug: Cipro (ciprofloxacin) 400 mg Volume: 200 ml; Route: IVPB; Infused Over: 60 mins; ph Site: right antecubital; 16:38 Follow up: Response: No adverse reaction; IV Status: Completed infusion ph 15:27 Drug: Flagyl (metroNIDAZOLE) 500 mg Volume: 100 ml; Route: IVPB; Rate: 200 ml/hr; ph Infused Over: 30 mins; Site: right antecubital; 16:38 Follow up: Response: No adverse reaction; IV Status: Completed infusion ph Disposition Summary: 01/08/22 15:09 Discharge Ordered Location: Home ma2 Condition: Stable ma2 Diagnosis - UTI/ Urinary tract infection, site not specified ma2 - Diverticulitis of large intestine without perforation or abscess without bleeding ma2 Followup: ma2 - With: Private Physician - When: Tomorrow - Reason: If symptoms return, Continuance of care Discharge Instructions: - Diverticulitis ph - Discharge Summary Sheet ma2 - Urinary Tract Infection, Adult ma2 - Diverticulitis, [id number] ma2 Forms: - Medication Reconciliation Form ma2 - Thank You Letter ma2 - Antibiotic Education ma2 - Prescription Opioid Use ma2 - Work release form Prescriptions: - Zofran 4 mg Oral Tablet - take 1 tablet by ORAL route every 12 hours As needed; 20 tablet; Refills: 0, ma2 Product Selection Permitted - Flagyl 500 mg Oral Tablet - take 1 tablet by ORAL route every 12 hours for 7 days; 14 tablet; Refills: 0, ma2 Product Selection Permitted - Cipro 500 mg Oral Tablet - take 1 tablet by ORAL route every 12 hours for 7 days; 14 tablet; Refills: 0, ma2 Product Selection Permitted - Diclofenac Sodium 75 mg Oral Tablet Sustained Release - take 1 tablet by ORAL route 2 times per day; 30 tablet; Refills: 0, Product ma2 Selection Permitted Signatures: Dispatcher [employer] Abigail Solorio, AYLA RN Hue Duarte RN RN Sheri Champion MD MD wi2
--- NOTE | 2022-01-08 15:10 | ER ---
Nurse's Notes [facility] Name: Suri Franco Age: 66 yrs Sex: Female : 1955 Arrival Date: 01/08/2022 Time: 12:21 Bed 14 Private MD: Devonte Lerner V Diagnosis: UTI/ Urinary tract infection, site not specified;Diverticulitis of large intestine without perforation or abscess without bleeding Presentation: 01/08 12:38 Chief complaint: Patient states: lower abd pain and back pain that began Sunday. Pt ss reports that she may have a bladder prolapse as well. Denies V/D. Coronavirus screen: Client denies travel out of the [place] in the last 14 days. Ebola Screen: Patient denies exposure to infectious person. Patient denies travel to an Ebola-affected area in the 21 days before illness onset. Initial Sepsis Screen: Does the patient meet any 2 criteria? No. Patient's initial sepsis screen is negative. Does the patient have a suspected source of infection? No. Patient's initial sepsis screen is negative. Risk Assessment: Do you want to hurt yourself or someone else? Patient reports no desire to harm self or others. Onset of symptoms was January 08, 2022. 12:38 Method Of Arrival: Ambulatory ss 12:38 Acuity: HANSA 3 ss Historical: - Allergies: 12:39 Augmentin; ss 12:39 Codeine; ss 12:39 Keflex; ss - PMHx: 12:39 Kidney stones; ss - Immunization history:: Adult Immunizations up to date. - Social history:: Patient/guardian denies using alcohol, street drugs, The patient lives with family, with spouse, Smoking status: Patient denies any tobacco usage or history of. - Family history:: not pertinent. Screenin:33 Abuse screen: Denies threats or abuse. Denies injuries from another. Nutritional ph screening: No deficits noted. Tuberculosis screening: No symptoms or risk factors identified. Fall Risk None identified. Assessment: 13:30 General: Appears in no apparent distress. uncomfortable, slender, well groomed, ph Behavior is calm, cooperative, appropriate for age, Denies fever, chills. Pain: Complains of pain in right lower quadrant and left lower quadrant. Neuro: Level of Consciousness is awake, alert, obeys commands, Oriented to person, place, time, situation. Cardiovascular: Capillary refill < 3 seconds in bilateral fingers Patient's skin is warm and dry. Respiratory: Airway is patent Respiratory effort is even, unlabored, Respiratory pattern is regular, symmetrical. GI: Abdomen is non-distended, Bowel sounds present X 4 quads. Abd is soft X 4 quads Patient currently denies diarrhea, nausea, vomiting. : No signs and/or symptoms were reported regarding the genitourinary system. Derm: Skin is intact, is healthy with good turgor, Skin is pink, warm \T\ dry. Musculoskeletal: Circulation, motion, and sensation intact. Range of motion: intact in all extremities. 15:16 Reassessment: Patient appears in no apparent distress at this time. Patient and/or ph family updated on plan of care and expected duration. Pain level reassessed. Patient is alert, oriented x 3, equal unlabored respirations, skin warm/dry/pink. D/C pending completion of IV antibiotics. Vital Signs: 12:38 BP 112 / 74; Pulse 74; Resp 16; Temp 97.8(TE); Pulse Ox 98% on R/A; Weight 51.71 kg; ss Height 4 ft. 11 in. (149.86 cm); Pain 7/10; 14:00 BP 112 / 72; Pulse 75; Resp 16; Pulse Ox 98% on R/A; ph 15:30 BP 110 / 72; Pulse 78; Resp 18; Pulse Ox 99% on R/A; ph 16:40 BP 108 / 72; Pulse 76; Resp 18; Temp 98.0; Pulse Ox 99% on R/A; ph 12:38 Body Mass Index 23.02 (51.71 kg, 149.86 cm) ED Course: 12:21 Patient arrived in ED. as 12:21 Devonte Lerner MD is Private Physician. as 12:23 Sheri Champion MD is Attending Physician. ma2 12:39 Triage completed. ss 12:39 Arm band placed on right wrist. 12:52 CBC with Diff Sent. jw7 12:52 CMP Sent. jw7 12:52 Lipase Sent. jw7 12:52 Initial lab(s) drawn, by pa, sent to lab. Inserted saline lock: 20 gauge in right jw7 antecubital area, using aseptic technique. Blood collected. 12:58 Hue Duarte, RN is Primary Nurse. ph 12:58 Urine collected: clean catch specimen, cloudy. jw7 12:59 Urine Microscopic Only Sent. jw7 12:59 Troponin High Sensitivity Sent. jw7 13:33 Patient has correct armband on for positive identification. Bed in low position. Call ph light in reach. Side rails up X 1. 13:53 CT Abd/Pelvis - IV Contrast Only In Process Unspecified. EDMS 16:41 No provider procedures requiring assistance completed. IV discontinued, intact, ph bleeding controlled, No redness/swelling at site. Pressure dressing applied. Administered Medications: 14:18 Drug: NS 0.9% 1000 ml Route: IV; Rate: 1 bolus; Site: right antecubital; ph 16:42 Follow up: IV Status: Completed infusion ph 14:18 Drug: Zofran (Ondansetron) 4 mg Route: IVP; Site: right antecubital; ph 14:57 Follow up: Response: No adverse reaction ph 14:20 Drug: morphine 4 mg Route: IVP; Infused Over: 4 mins; Site: right antecubital; ph 14:55 Follow up: Response: No adverse reaction ph 14:55 Drug: Cipro (ciprofloxacin) 400 mg Volume: 200 ml; Route: IVPB; Infused Over: 60 mins; ph Site: right antecubital; 16:38 Follow up: Response: No adverse reaction; IV Status: Completed infusion ph 15:27 Drug: Flagyl (metroNIDAZOLE) 500 mg Volume: 100 ml; Route: IVPB; Rate: 200 ml/hr; ph Infused Over: 30 mins; Site: right antecubital; 16:38 Follow up: Response: No adverse reaction; IV Status: Completed infusion ph Medication: 13:33 VIS not applicable for this client. ph Outcome: 15:09 Discharge ordered by MD. de leon 16:41 Discharged to home ambulatory, with family. ph 16:41 Condition: good 16:41 Discharge instructions given to patient, Instructed on discharge instructions, follow up and referral plans. medication usage, Demonstrated understanding of instructions, follow-up care, medications, Prescriptions given X 4. 16:42 Patient left the ED. ph Signatures: Dispatcher [employer] EDMS Martina Fields Shelby, RN RN Hue Duarte RN RN ph Sheri Champion MD MD ma2 Tristin, Clarissa jw7
[2022-01-08 17:19] VITALS: O2SAT 99
[2022-01-08 17:21] VITALS: BP 108/72; TEMP 98
== END 2022-01-08 16:42 | disposition home or self-care (01) ==
LOC: ER 12:19
DX: N39.0 Urinary tract infection, site not specified (principal); K57.32 Diverticulitis of large intestine without perforation or abscess without bleeding; Z87.442 Personal history of urinary calculi; Z88.1 Allergy status to other antibiotic agents; Z88.5 Allergy status to narcotic agent
CPT/HCPCS: 87088; 85025; 87086; 36415; 84484; 83690; 80053; 74177; Q9967; J7030; J3490; J2405; J0744; 81003; 81015

== ENCOUNTER 2022-01-10 12:57 | Observation (INO) | payer BC, OTHER ==
--- OUTSIDE RECORDS SUMMARY | 2022-01-10 15:33 | XMS REPORT | Continuity of Care Document ---
:1955 Author Organization [facility] t Address [address] [place] [address] Care Team Providers Name Role Phone Yann Chun Primary Care Physician Dalia CANALES L Attending Clinician Payers Payer Name Policy Type Policy Number Effective Date Expiration Date S ource Problems Condition Condition Condition Status Onset Resolution Last Treating Co mments Source Name Details Category Date Date Treatment Clinician Date No known No known Disease Unive rs active active ity of problems problems [facility] Allergies, Adverse Reactions, Alerts Allergy Allergy Status Severity Reaction(s) Onset Inactive Treating Comm ents Source Name Type Date Date Clinician Amoxicil Propensi Active Nausea Nausea/ye Uni vers madisyn-Pot ty to and/or -13 ast ity of Clavulan adverse Vomiting 00:[place] ate reaction 00 [facility] Codeine Propensi Active Itching Univer s ty to -13 ity of adverse 00:00: [place] reaction 00 [facility] Cephalex Propensi Active Other - See 0 Nausea/y e Univers in ty to comments 08-04 ast ity of adverse 00:00: infection [place] reaction 00 [facility] Social History Social Habit Start Date Stop Date Quantity Comments Source Exposure to 2021-07-05 2021-08-04 Not sure [facility] SARS-CoV-2 (event) 00:00:00 10:46:00 Medica l Branch Tobacco use and 2021-08-04 2021-08-04 Never used [facility] exposure 00:00:00 00:00:00 [facility] Sex Ass[birth year] [facility] 00:00:00 00:00:00 [facility] Smoking Status Start Date Stop Date Source Unknown if ever smoked [facility] Medications Ordered Filled Start Stop Current Ordering Indication Dosage Frequency Signature Comments Components Source Medication Medication Date Date Medication? Clinician (SIG) Name Name metroNIDAZO 2020-07 Yes An tristan LE 500 mg 2-01 ity of tablet 00:00: [place] 00 [facility] famotidine 2020-07 Yes Univers 20 mg 1-15 ity of tablet 00:00: [address] Branch gabapentin 2020-07 Yes Univers 100 mg 1-15 ity of capsule 00:00: [place] 00 [facility] Branch omeprazole 2020-07 Yes Univers 20 mg 1-15 ity of capsule 00:00: [address] metoclopram 2020-07 Yes An tristan rosio HCl 10 0-19 ity of mg tablet 00:00: [place] 00 [facility] SUTAB 2020-07 Yes Univers 1.479-0.188 0-19 ity of - 0.225 00:00: [place] gram [address] Branch Vital Signs Vital Name Observation Time Observation Value Comments Source Systolic blood 2021-08-04 16:58:00 137 mm[Hg] [facility] Diastolic blood 2021-08-04 16:58:00 72 mm[Hg] [facility] Heart rate 2021-08-04 16:58:00 77 /min [facility] Body height 2021-08-04 16:58:00 149.9 cm [facility] Body weight 2021-08-04 16:58:00 51.347 kg [facility] BMI 2021-08-04 16:58:00 22.86 kg/m2 [facility] Oxygen saturation 2021-08-04 16:58:00 100 /min [facility] in Arterial blood Medical Br anch by Pulse oximetry Procedures This patient has no known procedures. Encounters Start End Encounter Admission Attending Care Care Encounter Source Date/Time Date/Time Type Type Clinicians Facility Department ID 2021-08-17 Outpatient [facility] Common 13:31:51 [id number] [facility] 2021-08-17 Outpatient [facility] Common 13:25:38 [id number] [facility] 2021-08-17 Outpatient [facility] Common 13:03:46 [id number] [facility] 2021-08-17 Outpatient [facility] Common 13:02:06 [id number] [facility] 2021-08-04 2021-08-04 Office Dalia [facility] [id number] Univers 10:45:00 11:08:51 Visit [facility] [id number] it y kendra WOODS [id number] Ivan as NAIDA?BLEA [id number] Hi adelaide BURDEN [address] [place] [address] MEDICAL OFFICE BUILDING Results This patient has no known results.
[2022-01-10 17:25] LABS: Hematocrit 36.3 % (36.0-45.0); Lymphocytes % 38.4 % (15.3-44.8); MPV 9.5 fL (7.6-11.3); RBC Red Blood Cell Count 4.17 M/uL (3.86-4.86)
[2022-01-10] MEDS ORDERED: HYDROMORPHONE HCL 1 MG/ML INJ IV PRN (17:27)
--- NOTE | 2022-01-10 17:40 | RAD REPORT ---
EXAM DESCRIPTION: RAD - Chest Pa And Lat (2 Views) - 01/10/2022 5:23 pm CLINICAL HISTORY: Direct admit COMPARISON: Abdomen 1 View (KUB) dated 03/01/2021; Abdomen 1 View (KUB) dated 02/08/2021; Chest Pa And Lat (2 Views) dated 12/06/2020; Abdomen 1 View (KUB) dated 07/07/2019; Abdomen Pelvis W Contrast da albino 01/08/2022 FINDINGS: Lines: None. Lungs: No evidence of edema or pneumonia. Pleural: No significant pleural effusions or pneumothorax. Cardiac: The heart size is within normal limits. Bones: No acute fractures. Other: IMPRESSION: No acute cardiopulmonary disease.
[2022-01-10] MEDS ORDERED: ONDANSETRON 4 MG/2 ML VIAL IV PRN (18:00)
[2022-01-10] MEDS ORDERED: POLYETHYL GLY 3350 17 GM/DOSE PO PRN (18:00)
[2022-01-10] MEDS ORDERED: ACETAMINOPHEN 325 MG TABLET PO PRN (18:00)
[2022-01-10] MEDS ORDERED: LOPERAMIDE HCL 2 MG CAPSULE PO PRN (18:00)
[2022-01-10] MEDS ORDERED: ONDANSETRON 4 MG (ODT) TAB PO PRN (18:00)
[2022-01-10] MEDS ORDERED: DIPHENHYDRAMINE 25 MG TAB/CAP PO PRN (18:00)
[2022-01-10 18:08] LABS: Albumin 3.7 g/dL (3.4-5.0); Bilirubin Direct 0.1 mg/dL (0-0.2); Bilirubin Total 0.5 mg/dL (0.2-1.0); Magnesium 2.4 mg/dL (1.8-2.4); Phosphorus 3.2 mg/dL (2.5-4.9); Potassium 3.5 mmol/L (3.5-5.1); Protein, Total 7.7 g/dL (6.4-8.2); Thyroid Stimulating Hormone 1.64 uIU/mL (0.360-3.740)
[2022-01-10] MEDS: NACHLORIDE 0.45% 1,000 ML IV SCH (20:24)
[2022-01-10] MEDS: METRONIDAZOLE 500mg IVPB 500 MG/100 ML BAG IV SCH (20:25)
[2022-01-10] MEDS: CIPROFLOXACIN 400mg IV 400 MG/200 ML BAG IV SCH (21:28)
[2022-01-10] MEDS ORDERED: POTASSIUM CL SA 10 MEQ TAB PO ONE (23:01)
[2022-01-11] MEDS: METRONIDAZOLE 500mg IVPB 500 MG/100 ML BAG IV SCH ×3 (00:22→17:04)
[2022-01-11 04:34] LABS: Absolute Lymphocytes (CBC) 2.2 K/uL (0.7-4.9); Hematocrit 35.3 % (36.0-45.0); Lymphocytes % 40.1 % (15.3-44.8); MPV 9.3 fL (7.6-11.3); RBC Red Blood Cell Count 4.06 M/uL (3.86-4.86)
[2022-01-11] MEDS: CIPROFLOXACIN 400mg IV 400 MG/200 ML BAG IV SCH ×2 (04:56→17:04)
[2022-01-11 05:38] LABS: Urine Appearance Clear (Clear); Urine Bilirubin Negative (Negative); Urine Blood Negative (Negative); Urine Color Yellow (Yellow); Urine Glucose Negative (Negative); Urine Protein Negative (Negative); Urine Specific Gravity 1.025 (1.005-1.030); Urine Urobilinogen 0.2 mg/dL (0.2-1.0)
[2022-01-11 05:46] LABS: Urine Microscopic Reflex NO UMIC
[2022-01-11] MEDS: ENOXAPARIN 40 MG/0.4 ML SQ SCH (08:50)
[2022-01-11] MEDS: NACHLORIDE 0.45% 1,000 ML IV SCH (17:04)
[2022-01-11] MEDS ORDERED: METRONIDAZOLE 500mg IVPB 500 MG/100 ML BAG IV SCH (18:00)
--- NOTE | 2022-01-11 21:56 | P.PN ---
Subjective Date of Service: 01/11/22 Chief Complaint: ABDOMEN PAIN Subjective: Improving SHE HAS IMPROVED WELL WITH IV ABX AND LIQUID DIET. Physical Examination - Vital Signs Temperature: 97.2 F Blood Pressure: 170/77 Pulse: 69 Respirations: 16 Pulse Ox (%): 99 - Physical Exam General: Acute distress, Mild distress HEENT: Atraumatic, PERRLA, EOMI Neck: Supple, JVD not distended Respiratory: Clear to auscultation bilaterally, Normal air movement Cardiovascular: Regular rate/rhythm, Normal S1 S2 Gastrointestinal: Tenderness (LOWER ABDOMEN MODERATE, NO REBOUND.) Musculoskeletal: No tenderness Integumentary: No rashes Neurological: Normal speech, Normal tone, Normal affect Lymphatics: No axilla or inguinal lymphadenopathy - Studies Laboratory Data (last 24 hrs) 01/11/22 04:18: Sodium 140, Potassium 4.0, BUN 6 L, Creatinine 0.55, Glucose 102, Magnesium 2.0 01/11/22 04:18: WBC 5.5 D, Hgb 11.9 L, Hct 35.3 L, Plt Count 260 Medications List Reviewed: Yes Assessment And Plan - Current Problems (Diagnosis) (1) Acute diverticulitis Current Visit: Yes Status: Acute Plan: IV ABX FLUID DIET. MAY BE ABLE TO GO HOME IN AM. COLONOSCOPY AFTER HEALS. SHE IS AWARE.
[2022-01-12] MEDS: METRONIDAZOLE 500mg IVPB 500 MG/100 ML BAG IV SCH ×2 (00:04→08:38)
[2022-01-12 01:44] VITALS: BMI 22.6
[2022-01-12] MEDS: CIPROFLOXACIN 400mg IV 400 MG/200 ML BAG IV SCH (06:14)
[2022-01-12] MEDS: ENOXAPARIN 40 MG/0.4 ML SQ SCH (08:23)
[2022-01-12 08:34] VITALS: BP 145/87; TEMP 97.7
--- NOTE | 2022-01-12 21:50 | P.DS ---
Admission Date: 01/10/22 Discharge Date: 01/12/22 Disposition: ROUTINE DISCHARGE Reason for Admission: ABDOMEN PAIN - Problems (1) Acute diverticulitis Status: Acute Hospital Course: JAMI HAS DIVERTICULITIS DIAGNOSED CLINICALLY AND WITH CT SCAN. SHE WAS ON ORAL ABX BUT FAILED TO IMPROVE. SHE WAS IN SIGNIFICANT AMOUNT OF PAIN. I PUT HER ON LIQUID DIET AND GAVE IV ABX. SHE IMPROVED WELL. SHE WILL CONTINUE LOW RESIDUE DIET LIKE EGGS AND LIQUIDS UNTIL BETTER. SHE HAS ABX AT HOME. FU IN OFFICE IN ONE WEEK. Vital Signs/Physical Exam: Temp Pulse Resp BP Pulse Ox 97.7 F 86 16 145/87 H 99 01/12/22 08:00 01/12/22 08:00 01/12/22 08:00 01/12/22 08:00 01/12/22 08:00 Laboratory Data at Discharge: WBC Cancelled 01/12/22 15:57 Hgb Cancelled 01/12/22 15:57 Hct Cancelled 01/12/22 15:57 Plt Count Cancelled 01/12/22 15:57 APTT 35.2 SECONDS (24.3-36.9) 01/10/22 17:07 Sodium Cancelled 01/12/22 15:57 Potassium Cancelled 01/12/22 15:57 BUN Cancelled 01/12/22 15:57 Creatinine Cancelled 01/12/22 15:57 Glucose Cancelled 01/12/22 15:57 Phosphorus 3.2 mg/dL (2.5-4.9) 01/10/22 17:07 Magnesium Cancelled 01/12/22 15:57 Total Bilirubin 0.5 mg/dL (0.2-1.0) 01/10/22 17:07 AST 18 U/L (15-37) 01/10/22 17:07 ALT 27 U/L (12-78) 01/10/22 17:07 Alkaline Phosphatase 89 U/L (45-117) 01/10/22 17:07 Home Medications: Fluticasone [Flonase 50MCG Nasal [place]*] 2 sprays NS DAILY 12/06/20 Oxybutynin Chloride [Ditropan*] 5 mg PO BID 01/21/21 Acetaminophen [Tylenol Extra Strength] 1,000 mg PO PRN PRN 02/15/21 Codeine/APAP [Tylenol #3*] 1 tab PO BID 02/15/21 Tramadol HCl [Ultram] 50 mg PO Q8HP PRN 02/15/21 Followup: Devonte Lerner MD [ACTIVE - CAN ADMIT] - (Call to schedule appointment.)
--- NOTE | 2022-01-14 17:39 | EKG ---
Test Date: 2022-01-11 Test Time: 09:26:35 Department Clinician: PALAK MEASUREMENT RESULTS: Intervals: Rate: 70 KS: 142 QRSD: 86 QT: 426 QTc: 460 [place]: P: 0 KS: 142 QRS: 54 T: 54 INTERPRETIVE STATEMENTS: Normal sinus rhythm Normal ECG Compared to ECG 12/06/2020 09:02:01 No significant changes Electronically Signed On 01-14-22 17:32:21 CDT by Nick Mancera
[2022-01-14 19:52] LABS: Vitamin D 1,25-Dihydroxy Total 88 pg/mL (18-72); Vitamin D,1,25-OH2, D2 <8 pg/mL
== END 2022-01-12 10:00 | disposition home or self-care (01) ==
LOC: 2ND 15:31
PROVIDERS: ADMIT Internal Medicine; ATTEND Internal Medicine
DX: K57.92 Diverticulitis of intestine, part unspecified, without perforation or abscess without bleeding (principal); Z20.822 Contact with and (suspected) exposure to COVID-19
CPT/HCPCS: 93005; 87040; 85025 ×2; 80048 ×2; 36415; 83735 ×2; 84100; 80076; 85730; 82652; 84443; 81003; 82607; 71046; U0003; J3490 ×5; J2405; J0744 ×4; G0379; G0378 ×3; J1170; J1650

== ENCOUNTER 2022-03-23 15:33 | Emergency (ER) | payer BC, OTHER ==
--- OUTSIDE RECORDS SUMMARY | 2022-03-23 15:36 | XMS REPORT | Continuity of Care Document ---
:1955 Author Organization [facility] t Address [address] [place] [address] Care Team Providers Name Role Phone Devonte Mckeon Primary Care Physician Gerardo Gómez MD Attending Clinician Payers Payer Name Policy Type Policy Number Effective Date Expiration Date S ource Problems Condition Condition Condition Status Onset Resolution Last Treating Co mments Source Name Details Category Date Date Treatment Clinician Date No known No known Disease Unive rs active active ity of problems problems [place] [facility] Allergies, Adverse Reactions, Alerts Allergy Allergy Status Severity Reaction(s) Onset Inactive Treating Comm ents Source Name Type Date Date Clinician Amoxicil Propensi Active Nausea Nausea/ye Uni vers madisyn-Pot ty to and/or 08-04 ast ity of Clavulan adverse [place]iting [place] ate reaction 00 [facility] Codeine Propensi Active Itching 0 Univer s ty to 08-04 ity of adverse 00:00: [place] reaction 00 [facility] s [facility] Cephalex Propensi Active Other - See 0 Nausea/y e Univers in ty to comments 08-04 ast ity of adverse 00:00: infection [place] reaction 00 [facility] Social History Social Habit Start Date Stop Date Quantity Comments Source Exposure to 2021-07-05 2021-08-04 Not sure [facility] SARS-CoV-2 (event) 00:00:00 10:46:00 Medica Branch Tobacco use and 2021-08-04 2021-08-04 Never used [facility] exposure 00:00:00 00:00:00 Medical Branch Sex Ass[birth year] [facility] 00:00:00 00:00:00 Medical Branch Smoking Status Start Date Stop Date Source Unknown if ever smoked [facility] Medications Ordered Filled Start Stop Current Ordering Indication Dosage Frequency Signature Comments Components Source Medication Medication Date Date Medication? Clinician (SIG) Name Name metroNIDAZO 2020-07 Yes An tristan LE 500 mg 2-01 ity of tablet 00:00: [place] 00 [facility] famotidine 2020-07 Yes Univers 20 mg 1-15 ity of tablet 00:00: [address] Branch gabapentin 2020-07 Yes Univers 100 mg 1-15 ity of capsule 00:00: [address] Branch omeprazole 2020-07 Yes Univers 20 mg 1-15 ity of capsule 00:00: [address] Branch metoclopram 2020-07 Yes An tristan rosio HCl 10 0-19 ity of mg tablet 00:00: [place] 00 [facility] SUTAB 2020-07 Yes Univers 1.479-0.188 0-19 ity of - 0.225 00:00: [place] gram [address] Branch Vital Signs Vital Name Observation Time Observation Value Comments Source Systolic blood 2021-08-04 16:58:00 137 mm[facility]Hg[facility] 2021-08-04 16:58:00 72 mm[Hg] [facility] Heart rate 2021-08-04 16:58:00 77 /min [facility] Body height 2021-08-04 16:58:00 149.9 cm [facility] Body weight 2021-08-04 16:58:00 51.347 kg [facility] BMI 2021-08-04 16:58:00 22.86 kg/m2 [facility] Oxygen saturation 2021-08-04 16:58:00 100 /min [facility] in Arterial blood Medical Br anch by Pulse oximetry Procedures This patient has no known procedures. Encounters Start End Encounter Admission Attending Care Care Encounter Source Date/Time Date/Time Type Type Clinicians Facility Department ID 2021-08-17 Outpatient [facility] Common 13:31:51 [id number] [facility] 2021-08-17 Outpatient [facility] Common 13:25:38 [id number] [facility] 2021-08-17 Outpatient [facility] Common 13:03:46 [id number] [facility] 2021-08-17 Outpatient [facility] Common 13:02:06 [id number] [facility] 2021-08-04 2021-08-04 Office FRANCIS Gómez [id number] Univers 10:45:00 11:08:51 Visit [facility] [id number] it y of ARTHUR [id number] Ivan as NAIDA?BLEA [id number] [place] [address] MEDICAL OFFICE BUILDING Results This patient has no known results.
--- NOTE | 2022-03-23 16:37 | RAD REPORT ---
EXAM DESCRIPTION: RAD - Chest Single View - 03/23/2022 4:22 pm CLINICAL HISTORY: dizziness, general weakness Chest pain. COMPARISON: Chest Pa And Lat (2 Views) dated 01/10/2022; Abdomen 1 View (KUB) dated 03/01/2021; Abdome n 1 View (KUB) dated 02/08/2021; Chest Pa And Lat (2 Views) dated 12/06/2020 FINDINGS: Portable technique limits examination quality. The lungs are mildly emphysematous but grossly clear. The heart is normal in size. No displaced fract ures.Thoracic levoscoliosis noted. IMPRESSION: No acute intrathoracic process suspected.
[2022-03-23 17:01] LABS: Absolute Lymphocytes (CBC) 2.4 K/uL (0.7-4.9); Hematocrit 40.7 % (36.0-45.0); Lymphocytes % 30.4 % (15.3-44.8); MCV 85.3 fL (80-100); MPV 9.1 fL (7.6-11.3); RBC Red Blood Cell Count 4.77 M/uL (3.86-4.86)
[2022-03-23 17:15] LABS: Urine Bacteria <20 /HPF (<20); Urine Mucus Slight /HPF (None Seen); Urine RBC <5 /HPF (None Seen)
[2022-03-23 17:19] LABS: Magnesium 2.2 mg/dL (1.8-2.4); Potassium 3.5 mmol/L (3.5-5.1); Troponin High Sensitivity 4.8 pg/mL (<58.9)
[2022-03-23 17:26] LABS: Urine Blood Negative (Negative); Urine Glucose Negative (Negative); Urine Protein Negative (Negative)
--- NOTE | 2022-03-23 17:49 | RAD REPORT ---
EXAM DESCRIPTION: CT - Head Brain Wo Cont - 03/23/2022 5:07 pm CLINICAL HISTORY: dizziness Headache, drowsiness COMPARISON: No comparisons TECHNIQUE: All CT scans are performed using dose optimization technique as appropriate and may inclu de automated exposure control or mA/KV adjustment according to patient size. FINDINGS: No intracranial hemorrhage, hydrocephalus or extra-axial fluid collection.No areas of brai n edema or evidence of midline shift. The paranasal sinuses and mastoids are clear. The calvarium is intact. IMPRESSION: No acute intracranial abnormality.
[2022-03-23] MEDS ORDERED: KETOROLAC 30 MG/ML INJ ONE (18:23)
--- NOTE | 2022-03-23 20:20 | RAD REPORT ---
EXAM DESCRIPTION: MRI - Brain Wo Cont - 03/23/2022 8:08 pm CLINICAL HISTORY: unsteady, dizziness Headache, dizziness COMPARISON: Head Brain Wo Cont dated 03/23/2022 TECHNIQUE: Multi-sequence, multiplanar MR imaging of the brain was performed without contrast. FINDINGS: No intracranial hemorrhage, hydrocephalus or extra-axial fluid collections.Minimal periven tricular chronic microvascular ischemia. No edema or shift of midline structures. No findings to susp ect brain mass. DWI is negative for acute CVA. Midline structures are normally formed. Mastoid air cells and paranasal sinuses are clear. IMPRESSION: Negative for acute CVA or other acute intracranial process.
[2022-03-23] MEDS ORDERED: HYDRALAZINE HCL 20 MG/ML VIAL ONE (20:44)
[2022-03-23] MEDS ORDERED: lisinopriL 10 MG TAB ONE (20:44)
--- NOTE | 2022-03-23 22:14 | EDPHYS ---
Physician Documentation [place] [facility] Name: Suri Franco Age: 66 yrs Sex: Female : 1955 Arrival Date: 03/23/2022 Time: 15:37 Bed 14 Private MD: Devonte Lerner V ED Physician Jordon Matamoros HPI: 03/23 15:57 This 66 yrs old Female presents to ER via Ambulatory with complaints of Head cp Numbness, Dizziness. 15:57 The patient's problem is reported as paresthesias, left back of head, weakness, that is cp generalized, dizziness, unsteady. Onset: The symptoms/episode began/occurred 4 day(s) ago. 15:57 Duration: The episode is continuous. Context:. Associated signs and symptoms: Pertinent cp positives: lightheadedness, Pertinent negatives: abdominal pain, chest pain, diaphoresis, diarrhea, palpitations, vomiting. Severity of symptoms: in the emergency department the symptoms are unchanged despite home interventions. Patient's baseline: Neuro: alert and fully oriented, Motor: no deficits, Ambulation: walks without assistance, Speech: normal. Historical: - Allergies: 15:50 Augmentin; ph 15:50 Keflex; ph 15:50 Codeine; ph - PMHx: 15:50 Kidney stones; ph - Immunization history:: Adult Immunizations unknown. - Social history:: Smoking status: Patient denies any tobacco usage or history of. ROS: 16:00 Constitutional: Negative for body aches, chills, fever, poor PO intake. cp 16:00 Eyes: Negative for injury, pain, redness, and discharge. cp 16:00 ENT: Negative for drainage from ear(s), ear pain, sore throat, difficulty swallowing, difficulty handling secretions. 16:00 Neck: Negative for pain with movement, pain at rest, stiffness. 16:00 Cardiovascular: Negative for chest pain, edema, palpitations. 16:00 Respiratory: Negative for cough, shortness of breath, wheezing. 16:00 Abdomen/GI: Negative for abdominal pain, vomiting, diarrhea, constipation, black/tarry stool, rectal bleeding. 16:00 Back: Negative for pain at rest, pain with movement. 16:00 : Negative for urinary symptoms. 16:00 Neuro: Positive for dizziness, headache, numbness, weakness, Negative for altered mental status. 16:00 Skin: Negative for rash. cp Exam: 16:05 Constitutional: The patient appears in no acute distress, alert, awake, cp non-diaphoretic, non-toxic, well developed, well nourished. 16:05 Head/Face: Normocephalic, atraumatic. cp 16:05 Eyes: Periorbital structures: appear normal, Pupils: equal, round, and reactive to light and accomodation, Extraocular movements: intact throughout, Conjunctiva: normal, no exudate, no injection, Sclera: no appreciated abnormality, Lids and lashes: appear normal, bilaterally, Visual alvarado: are intact. 16:05 ENT: External ear(s): are unremarkable, Ear canal(s): are normal, clear, TM's: dullness, bilaterally, Nose: is normal, Mouth: Lips: moist, Oral mucosa: pink and intact, moist, Posterior pharynx: Airway: no evidence of obstruction, patent. 16:05 Neck: ROM/movement: is normal, is supple, without pain, no range of motions limitations, no nuchal rigidity. 16:05 Chest/axilla: Inspection: normal. 16:05 Cardiovascular: Rate: normal, Rhythm: regular, Edema: is not appreciated, JVD: is not appreciated. 16:05 Respiratory: the patient does not display signs of respiratory distress, Respirations: normal, no use of accessory muscles, no retractions, labored breathing, is not present, Breath sounds: are clear throughout, no decreased breath sounds, no stridor, no wheezing. 16:05 Abdomen/GI: Inspection: abdomen appears normal, Palpation: abdomen is soft and non-tender, in all quadrants. 16:05 Back: pain, is absent, ROM is normal. 16:05 Skin: no rash present. 16:05 Neuro: Orientation: to person, place \T\ time. Mentation: is normal, Cerebellar function: is grossly normal, Motor: moves all fours, strength is normal, Sensation: no obvious gross deficits, Gait: is steady, at a normal pace. 18:00 Radiologist reports: no acute findings cp 18:15 ECG was reviewed by the Attending Physician. Vital Signs: 15:46 BP 161 / 87; Pulse 87; Pulse Ox 99% ; Weight 51.71 kg; Height 4 ft. 11 in. (149.86 cm); ph Pain 0/10; 18:04 Resp 16; Temp 97.4; ll1 18:20 BP 188 / 87; Pulse 73; Resp 16; Pulse Ox 100% ; ll1 20:16 BP 187 / 97; Pulse 74; Resp 14; Pulse Ox 100% on R/A; ll3 21:46 BP 173 / 72; Pulse 86; Resp 15; Pulse Ox 97% on R/A; ll3 15:46 Body Mass Index 23.02 (51.71 kg, 149.86 cm) ph MDM: 18:00 Patient medically screened. cp 22:13 Data reviewed: vital signs, nurses notes, lab test result(s), EKG, radiologic studies, cp CT scan, MRI, plain films. 22:13 Test interpretation: by ED physician or midlevel provider: ECG. Counseling: I had a cp detailed discussion with the patient and/or guardian regarding: the historical points, exam findings, and any diagnostic results supporting the discharge/admit diagnosis, the presence of at least one elevated blood pressure reading (>120/80) during this emergency department visit, lab results, radiology results, the need for outpatient follow up, a family practitioner, to return to the emergency department if symptoms worsen or persist or if there are any questions or concerns that arise at home. Response to treatment: the patient's symptoms have mildly improved after treatment, VSS. Blood pressure improved. Patient reports taking OTC Sudafed earlier today and denies history of htn. Expressed concern for htn and recommendation to start antihypertensive, avoid sudafed and continue to monitor blood pressure at home. F/u with DR Lerner. CT head, MRI brain negative. Baby aspirin daily. 03/23 15:57 Order name: Basic Metabolic Panel; Complete Time: 17:47 cp 03/23 18:08 Interpretation: Reviewed. 03/23 15:57 Order name: CBC with Diff; Complete Time: 17:47 cp 03/23 18:08 Interpretation: Reviewed. 03/23 15:57 Order name: Magnesium; Complete Time: 17:47 cp 03/23 15:57 Order name: PT-INR; Complete Time: 17:47 03/23 15:57 Order name: Troponin HS; Complete Time: 17:47 cp 03/23 15:57 Order name: Urine Microscopic Only; Complete Time: 17:47 cp 03/23 17:47 Interpretation: Normal except. cp 03/23 15:57 Order name: CT Head Brain wo Cont; Complete Time: 18:00 cp 03/23 15:57 Order name: XRAY Chest (1 view); Complete Time: 17:47 cp 03/23 18:07 Interpretation: Report review. 03/23 15:57 Order name: EKG; Complete Time: 15:58 cp 03/23 17:26 Order name: Urine Dipstick-Ancillary; Complete Time: 17:47 EDNM 03/23 18:08 Interpretation: Reviewed. 03/23 18:09 Order name: Brain Wo Cont; Complete Time: 20:23 EDMS 03/23 20:23 Interpretation: Report reviewed. 03/23 15:57 Order name: Cardiac monitoring; Complete Time: 18:04 03/23 15:57 Order name: EKG - Nurse/Tech; Complete Time: 18:04 03/23 15:57 Order name: IV Saline Lock; Complete Time: 16:58 03/23 15:57 Order name: Labs collected and sent; Complete Time: 16:58 03/23 15:57 Order name: O2 Per Protocol; Complete Time: 16:59 03/23 15:57 Order name: O2 Sat Monitoring; Complete Time: 18:01 03/23 15:57 Order name: Urine Dipstick-Ancillary (obtain specimen); Complete Time: 16:59 03/23 21:47 Order name: Vital Signs: please update blood pressure; Complete Time: 21:47 cp EC:15 Rate is 70 beats/min. Rhythm is regular. NE interval is normal. QRS interval is normal. cp QT interval is normal. T waves are Inverted in leads aVL, aVR. Interpreted by me. Reviewed by me. Administered Medications: 18:20 Not Given (Patient Refused): Ketorolac 15 mg IVP once ll1 20:41 Drug: hydrALAZINE 10 mg Route: IVP; Site: left antecubital; ll3 20:41 Drug: Lisinopril 10 mg Route: PO; ll3 Disposition: 19:55 Co-signature as Attending Physician, Jordon SANTILLAN was immediately available on-site ms3 in the Emergency Department for consultation in the care of the patient. . Disposition Summary: 09/01/22 22:13 Discharge Ordered Location: Home cp Problem: new cp Symptoms: have improved cp Condition: Stable cp Diagnosis - Dizziness and giddiness cp - Hypertensive heart disease without heart failure cp Followup: cp - With: Devonte Lerner MD - When: 2 - 3 days - Reason: Recheck today's complaints Discharge Instructions: - Discharge Summary Sheet cp - Dizziness cp - Hypertension, Adult cp - Aspirin and Your Heart cp - Form - Blood Pressure Record Sheet cp - How to Take Your Blood Pressure cp Forms: - Medication Reconciliation Form cp - Thank You Letter cp - Antibiotic Education cp - Prescription Opioid Use cp Prescriptions: - Meclizine 25 mg Oral Tablet - take 1 tablet by ORAL route every 8 hours As needed; 30 tablet; Refills: 0, cp Product Selection Permitted - Lisinopril 10 mg Oral Tablet - take 1 tablet by ORAL route once daily; 20 tablet; Refills: 0, Product cp Selection Permitted Signatures: Dispatcher [employer] Hue Ta RN RN Juan Alberto Pozo PA PA cp Sims, Marcus, DO DO ms3 Pilar Georges RN RN ll3 Leonel Maldonado RN ll1
--- NOTE | 2022-03-23 22:14 | ER ---
Nurse's Notes [facility] Name: Suri Franco Age: 66 yrs Sex: Female : 1955 Arrival Date: 03/23/2022 Time: 15:37 Bed 14 Private MD: Devonte Lerner V Diagnosis: Dizziness and giddiness;Hypertensive heart disease without heart failure Presentation: 03/23 15:46 Chief complaint: Patient states: numbness on back of head on left side, has occasional ph pain in the top of head, was dizzy Sunday night, took dramamine, took tylenol sinus and sudafed. Has a history of vertigo, feels different than this. Has had nausea, "doesn't feel normal, generalized weakness". Coronavirus screen: Client denies travel out of the [place] in the last 14 days. At this time, the client does not indicate any symptoms associated with coronavirus-19. Ebola Screen: No symptoms or risks identified at this time. Initial Sepsis Screen: Does the patient meet any 2 criteria? No. Patient's initial sepsis screen is negative. Does the patient have a suspected source of infection? No. Patient's initial sepsis screen is negative. Risk Assessment: Do you want to hurt yourself or someone else? Patient reports no desire to harm self or others. Onset of symptoms was March 20, 2022. 15:46 Method Of Arrival: Ambulatory ph 15:46 Acuity: HANSA 3 ph Triage Assessment: 15:50 General: Appears in no apparent distress. Behavior is calm, cooperative, appropriate ph for age, flat. Pain: Denies pain. Historical: - Allergies: 15:50 Augmentin; ph 15:50 Keflex; ph 15:50 Codeine; ph - PMHx: 15:50 Kidney stones; ph - Immunization history:: Adult Immunizations unknown. - Social history:: Smoking status: Patient denies any tobacco usage or history of. Screenin:04 Abuse screen: Denies threats or abuse. Nutritional screening: No deficits noted. ll1 Tuberculosis screening: No symptoms or risk factors identified. Fall Risk IV access (20 points). Gait- Impaired (20 pts.). Total Albarran Fall Scale indicates Low Risk Score (25-44 pts). Fall prevention measures have been instituted. Side Rails Up X 2 Placed close to Nursing Station Frequent Obs/Assesments occuring Family Present and informed to notify staff if they need to leave bedside As available Patient and Family Educated on Fall Prevention Program and strategies. Assessment: 18:06 General: Appears in no apparent distress. Behavior is calm, cooperative, appropriate ll1 for age. Neuro: Reports dizziness, headache paresthesias in scalp weakness. GI: Reports nausea. 18:24 Reassessment: No changes from previously documented assessment. Patient and/or family ll1 updated on plan of care and expected duration. Pain level reassessed. Patient is alert, oriented x 3, equal unlabored respirations, skin warm/dry/pink. 19:01 Reassessment: No changes from previously documented assessment. Patient and/or family ll1 updated on plan of care and expected duration. Pain level reassessed. Patient is alert, oriented x 3, equal unlabored respirations, skin warm/dry/pink. 20:16 Reassessment: No changes from previously documented assessment. Patient and/or family ll3 updated on plan of care and expected duration. Pain level reassessed. Patient is alert, oriented x 3, equal unlabored respirations, skin warm/dry/pink. Vital Signs: 15:46 BP 161 / 87; Pulse 87; Pulse Ox 99% ; Weight 51.71 kg; Height 4 ft. 11 in. (149.86 cm); ph Pain 0/10; 18:04 Resp 16; Temp 97.4; ll1 18:20 BP 188 / 87; Pulse 73; Resp 16; Pulse Ox 100% ; ll1 20:16 BP 187 / 97; Pulse 74; Resp 14; Pulse Ox 100% on R/A; ll3 21:46 BP 173 / 72; Pulse 86; Resp 15; Pulse Ox 97% on R/A; ll3 15:46 Body Mass Index 23.02 (51.71 kg, 149.86 cm) ph ED Course: 15:37 Patient arrived in ED. mr 15:37 Devonte Lerner MD is Private Physician. mr 15:50 Triage completed. ph 15:50 Arm band placed on right wrist. Patient placed in waiting room, Patient notified of ph wait time. 15:52 Juan Alberto Lauren PA is PHCP. cp 15:52 Jordon Matamoros DO is Attending Physician. cp 16:24 XRAY Chest (1 view) In Process Unspecified. EDMS 16:57 Initial lab(s) drawn, by me, sent to lab. Inserted saline lock: 20 gauge in left kj1 antecubital area, using aseptic technique. Blood collected. 16:59 Urine Microscopic Only Sent. kj1 17:08 CT Head Brain wo Cont In Process Unspecified. EDMS 18:01 Leonel Maldonado, RN is Primary Nurse. ll1 18:01 Patient placed in an exam room, on a stretcher. ll1 18:05 Patient has correct armband on for positive identification. Bed in low position. Call ll1 light in reach. Side rails up X 1. Client placed on continuous cardiac and pulse oximetry monitoring. NIBP monitoring applied. environmental monitoring technician on. 18:05 No provider procedures requiring assistance completed. ll1 20:06 Brain Wo Cont In Process Unspecified. EDMS 22:12 Devonte Lerner MD is Referral Physician. cp 22:30 IV discontinued, intact, bleeding controlled, No redness/swelling at site. Pressure ll3 dressing applied. Administered Medications: 18:20 Not Given (Patient Refused): Ketorolac 15 mg IVP once ll1 20:41 Drug: hydrALAZINE 10 mg Route: IVP; Site: left antecubital; ll3 20:41 Drug: Lisinopril 10 mg Route: PO; ll3 Medication: 18:05 VIS not applicable for this client. ll1 Outcome: 22:13 Discharge ordered by . cp 22:30 Discharged to home ambulatory, with family. ll3 22:30 Condition: stable 22:30 Discharge instructions given to patient, family, Instructed on discharge instructions, follow up and referral plans. medication usage, Demonstrated understanding of instructions, follow-up care, medications, Prescriptions given X 2. 22:30 Patient left the ED. ll3 Signatures: Dispatcher [employer] [facility] Joan Whitehead Hue Duarte RN RN Juan Alberto Pozo PA PA cp Jackson, Kandis kj1 Leonel Maldonado, AYLA AGUILA ll1 Pilar Georges RN RN ll3
[2022-03-24 00:55] VITALS: TEMP 97.4
[2022-03-24 01:08] VITALS: BP 173/72; O2SAT 97
--- NOTE | 2022-03-24 07:20 | EKG ---
Test Date: 2022-03-23 Test Time: 18:12:42 Documentation Billing Clerk: JERMAIN MEASUREMENT RESULTS: Intervals: Rate: 70 MD: 136 QRSD: 86 QT: 410 QTc: 442 [place]: P: 26 MD: 136 QRS: 66 T: 89 INTERPRETIVE STATEMENTS: Normal sinus rhythm Normal ECG Compared to ECG 01/11/2022 09:26:35 No significant changes Electronically Signed On 03-24-22 07:18:28 CDT by Philip Bar
== END 2022-03-23 22:30 | disposition home or self-care (01) ==
LOC: ER 15:33
DX: I11.9 Hypertensive heart disease without heart failure (principal); Z87.442 Personal history of urinary calculi; Z88.1 Allergy status to other antibiotic agents; Z88.5 Allergy status to narcotic agent
CPT/HCPCS: 93005; 85025; 80048; 36415; 83735; 85610; 84484; 70450; 71045; 70551; 96374; 99284; J0360; 81003; 81015

== ENCOUNTER 2024-04-09 06:14 | Day surgery (SDC) | payer BC ==
[2024-04-08 14:43] LABS: Absolute Basophils 0.1 K/uL (0-0.5); Absolute Eosinophils 0.1 K/uL (0-0.5); Absolute Lymphocytes (CBC) 2.5 K/uL (0.7-4.9); Absolute Monocytes 0.8 K/uL (0.1-1.3); Absolute Neutrophil 5.4 K/uL (1.8-8.0); Eosinophils % 1.6 % (0-4.4); Hematocrit 41.6 % (36.0-45.0); Hemoglobin 13.8 g/dL (12.0-15.0); Lymphocytes % 27.9 % (15.3-44.8); MCH 29.9 pg (27.0-35.0); MCHC 33.1 g/dL (32.0-36.0); MCV 90.5 fL (80-100); MPV 9.7 fL (7.6-11.3); Monocytes % 8.7 % (3.3-12.3); Neutrophils % 60.8 % (41.7-73.7); Platelets 261 thou/uL (152-406); Red Cell Distribution Width 13.3 % (12.1-15.2)
[2024-04-08 14:51] LABS: Anion Gap 8.6 mEq/L (5.0-15.0); Potassium 4.6 mEq/L (3.5-5.1)
[2024-04-09] MEDS ORDERED: Ringers Lactate 1,000 ML IV ONE (06:27)
[2024-04-09] MEDS ORDERED: propofoL 200 MG/20 ML VIAL IV ONE (07:09)
[2024-04-09] MEDS ORDERED: LIDOCAINE 1% MPF 5 ML VIAL ONE (07:09)
[2024-04-09 08:52] VITALS: BP 152/74; TEMP 97; O2SAT 99
--- NOTE | 2024-04-10 12:25 | EKG ---
Test Date: 2024-04-08 Test Time: 14:16:47 Plastic Shaper: PUJA MEASUREMENT RESULTS: Intervals: Rate: 67 KS: 132 QRSD: 82 QT: 432 QTc: 456 [place]: P: 23 KS: 132 QRS: 35 T: 38 INTERPRETIVE STATEMENTS: Normal sinus rhythm Normal ECG Compared to ECG 03/23/2022 18:12:42 No significant changes Electronically Signed On 04-10-24 12:19:11 CDT by Kwesi Briseno
== END 2024-04-09 09:05 | disposition home or self-care (01) ==
LOC: OR 06:14
PROVIDERS: ATTEND Surgery
PROC: 0DBM8ZX Excision of Descending Colon, Via Natural or Artificial Opening Endoscopic, Diagnostic (ICD-10-PCS; principal; 2024-04-09 07:30)
DX: Z12.11 Encounter for screening for malignant neoplasm of colon (principal); K63.5 Polyp of colon; F41.9 Anxiety disorder, unspecified; I10 Essential (primary) hypertension; K57.30 Diverticulosis of large intestine without perforation or abscess without bleeding; K64.4 Residual hemorrhoidal skin tags; K64.8 Other hemorrhoids; Z85.038 Personal history of other malignant neoplasm of large intestine
CPT/HCPCS: 36415; 80048; 85025; 88305; 93005; J2001; J2704; J7120

== ENCOUNTER 2024-05-27 10:21 | Emergency (ER) | payer BC ==
[2024-05-27 11:40] LABS: Specific Gravity 1.013 (1.005-1.030); Sqamous Epithelial <5 /HPF (None Seen); Urine Bacteria None Seen /HPF (<20); Urine Bilirubin NEGATIVE (Negative); Urine Blood Negative (Negative); Urine Clarity Clear (Clear); Urine Color Light-Yellow (Yellow); Urine Crystals Unidentified Few /HPF (None Seen); Urine Culture Reflex Order NOT NEEDED; Urine Glucose NEGATIVE (Negative); Urine Ketones NEGATIVE (Negative); Urine Microscopic Reflex YN ORDER UMIC; Urine Nitrite NEGATIVE (Negative); Urine Protein NEGATIVE (Negative); Urine RBC <5 /HPF (None Seen); Urine Urobilinogen Normal (Normal); Urine WBC <5 /HPF (<5); Urine WBC Clump Rare /HPF (None Seen); Urine Yeast (Budding) Trace /HPF (None Seen); Urine pH 6.5 (5.0-7.0)
[2024-05-27 11:43] LABS: Absolute Basophils 0.1 K/uL (0-0.5); Absolute Eosinophils 0.1 K/uL (0-0.5); Absolute Lymphocytes (CBC) 2.1 K/uL (0.7-4.9); Absolute Monocytes 0.7 K/uL (0.1-1.3); Absolute Neutrophil 4.8 K/uL (1.8-8.0); Basophils % 0.7 % (0-1.3); Eosinophils % 1.8 % (0-4.4); Hematocrit 39.9 % (36.0-45.0); Hemoglobin 13.2 g/dL (12.0-15.0); Lymphocytes % 27.2 % (15.3-44.8); MCH 29.9 pg (27.0-35.0); MCHC 33.1 g/dL (32.0-36.0); MCV 90.3 fL (80-100); MPV 9.7 fL (7.6-11.3); Monocytes % 9.2 % (3.3-12.3); Neutrophils % 61.1 % (41.7-73.7); Platelets 252 thou/uL (152-406); RBC Red Blood Cell Count 4.42 M/uL (3.86-4.86)
[2024-05-27 12:00] LABS: Anion Gap 4.9 mEq/L (5.0-15.0); Bilirubin Total 0.6 mg/dL (0.2-1.0); Globulin 3.9 g/dL (2.3-3.5); Potassium 3.9 mEq/L (3.5-5.1); Protein, Total 7.9 g/dL (6.4-8.2)
--- NOTE | 2024-05-27 12:31 | RAD REPORT ---
EXAMINATION: CT ABDOMEN AND PELVIS WITH CONTRAST CLINICAL INDICATION: Abdominal pain TECHNIQUE: CT abdomen and pelvis was performed, after the administration of 100 cc Isovue-300.. Sagit carlos and coronal reconstructions were obtained. One or more of the following dose reduction techniques were used: Automated exposure control, adjustment of the mA and kV according to patient si ze, and iterative reconstruction. Unless otherwise specified, incidental findings do not require dedicated imaging follow-up. [id number]. Oral contrast was not given which limits evaluation of bowel and appendix. COMPARISON: 2021 FINDINGS: Mild fatty liver. Spleen, pancreas, adrenals and kidneys unremarkable. 2.7 cm duodenal diverticulum. Normal appendix. No evidence of diverticulitis. No adnexal mass : IMPRESSION: No acute abnormality displayed
[2024-05-27] MEDS ORDERED: KETOROLAC 30 MG/ML INJ ONE (12:36)
--- NOTE | 2024-05-27 13:30 | ER ---
Nurse's Notes [facility] Name: Suri Franco Age: 68 yrs Sex: Female : 1955 Arrival Date: 05/27/2024 Time: 10:21 Bed DX1 Private MD: Diagnosis: Abdominal pain, unspecified Presentation: 05/27 11:06 Chief complaint: Patient states: Started on Sunday, had abdominal pain and swelling, tm6 today I started to have cramping. The more I move, the more I swell. No n/v/d. Coronavirus screen: Vaccine status: Patient reports receiving the 2nd dose of the covid vaccine. Ebola Screen: Patient negative for fever greater than or equal to 101.5 degrees Fahrenheit, and additional compatible Ebola Virus Disease symptoms Patient denies exposure to infectious person. Patient denies travel to an Ebola-affected area in the 21 days before illness onset. No symptoms or risks identified at this time. Initial Sepsis Screen: Does the patient meet any 2 criteria? No. Patient's initial sepsis screen is negative. Does the patient have a suspected source of infection? No. Patient's initial sepsis screen is negative. Risk Assessment: Do you want to hurt yourself or someone else? Patient reports no desire to harm self or others. Onset of symptoms was May 24, 2024. 11:06 Method Of Arrival: Ambulatory tm6 11:06 Acuity: HANSA 3 tm6 Triage Assessment: 11:09 General: Appears in no apparent distress. uncomfortable, Behavior is calm, cooperative. tm6 Pain: Complains of pain in abdomen Pain currently is 5 out of 10 on a pain scale. Quality of pain is described as crampy, "discomfort" Pain began 2-3 days ago. EENT: No signs and/or symptoms were reported regarding the EENT system. Neuro: Level of Consciousness is awake, alert, obeys commands, Oriented to person, place, time, situation. Cardiovascular: Patient's skin is warm and dry. Respiratory: Airway is patent Respiratory effort is even, unlabored, Respiratory pattern is regular, symmetrical. GI: Abdomen is round non-distended, Reports bloating, constipation, cramping, since Sunday. : No signs and/or symptoms were reported regarding the genitourinary system. Derm: No signs and/or symptoms reported regarding the dermatologic system. Musculoskeletal: No signs and/or symptoms reported regarding the musculoskeletal system. Historical: - Allergies: 11:08 Augmentin; tm6 11:08 Keflex; tm6 11:08 Codeine; tm6 - PMHx: 11:08 Kidney stones; Hypertensive disorder; Diverticulitis; tm6 - PSHx: 11:11 section; tm6 - Immunization history:: Client reports receiving the 2nd dose of the Covid vaccine. - Infectious Disease History:: Denies. - Social history:: Smoking status: Patient denies any tobacco usage or history of. - Family history:: not pertinent. Assessment: 13:30 Reassessment: Patient appears in no apparent distress at this time. Patient and/or ss family updated on plan of care and expected duration. Pain level reassessed. Patient is alert, oriented x 3, equal unlabored respirations, skin warm/dry/pink. Vital Signs: 11:06 BP 164 / 91; Pulse 74; Resp 17; Temp 98.2(O); Pulse Ox 100% on R/A; MAP 113 mmHg; tm6 Weight 51.26 kg; Height 4 ft. 11 in. ; Pain 5/10; 11:06 Body Mass Index 22.82 (51.26 kg, 149.86 cm) tm6 11:06 Pain Scale: Adult tm6 ED Course: 10:26 Patient arrived in ED. mg5 10:26 Rommel Cano MD is Attending Physician. rt 11:08 Triage completed. tm6 11:09 Arm band placed on right wrist. tm6 11:33 CBC with Diff Sent. kb3 11:33 CMP Sent. kb3 11:33 Lipase Sent. kb3 11:33 Urinalysis w/ reflexes Sent. kb3 11:33 Inserted saline lock: 20 gauge in left antecubital area, using aseptic technique. Blood kb3 collected. Flushed with 10 mL NS. 12:21 CT Abd/Pelvis - IV Contrast Only In Process Unspecified. EDMS 12:42 Abigail Hernandez, AYLA is Primary Nurse. ss 14:03 No provider procedures requiring assistance completed. IV discontinued, intact, ss bleeding controlled, No redness/swelling at site. Pressure dressing applied. Administered Medications: 12:42 Drug: TORadol - Ketorolac IVP 15 mg IVP once Route: IVP; Site: left antecubital; ss 13:30 Follow up: Response: No adverse reaction; Pain is decreased ss Outcome: 13:30 Discharge ordered by . rt 13:30 Discharged to home ambulatory, ss 13:30 Condition: good 13:30 Discharge instructions given to patient, Instructed on discharge instructions, follow ss up and referral plans. Demonstrated understanding of instructions, follow-up care, 14:04 Patient left the ED. ss Signatures: Dispatcher [employer] EDMS Abigail Hernandez RN RN Ayse Krishna RN RN kb3 Rommel Cano MD MD rt Nasima Le mg5 Shavonne Wen RN RN tm6
--- NOTE | 2024-05-27 13:31 | EDPHYS ---
Physician Documentation [facility] Name: Suri Franco Age: 68 yrs Sex: Female : 1955 Arrival Date: 05/27/2024 Time: 10:21 Bed DX1 Private MD: ED Physician Rommel Cano HPI: 05/27 13:13 This 68 yrs old Female presents to ER via Ambulatory with complaints of SENT rt BY DRMarry 13:13 Patient was sent to the ED from Dr. Ferguson for abdominal pain, reported abdominal rt swelling since Sunday. She was going to have surgery, however, stated the symptoms were similar to previous episodes of diverticulitis. Was sent for eval of diverticulitis. Denies other acute complaints at this time, symptoms are moderate in severity, no other aggravating or allieviating factors.. Historical: - Allergies: 11:08 Augmentin; tm6 11:08 Keflex; tm6 11:08 Codeine; tm6 - PMHx: 11:08 Kidney stones; Hypertensive disorder; Diverticulitis; tm6 - PSHx: 11:11 section; tm6 - Immunization history:: Client reports receiving the 2nd dose of the Covid vaccine. - Infectious Disease History:: Denies. - Social history:: Smoking status: Patient denies any tobacco usage or history of. - Family history:: not pertinent. ROS: 13:13 Constitutional: Negative for fever, chills, and weight loss, Cardiovascular: Negative rt for chest pain, palpitations, and edema, Respiratory: Negative for shortness of breath, cough, wheezing, and pleuritic chest pain, MS/Extremity: Negative for injury and deformity, Skin: Negative for injury, rash, and discoloration, Neuro: Negative for headache, weakness, numbness, tingling, and seizure, 13:13 Abdomen/GI: Positive for abdominal pain, Negative for nausea and vomiting, Exam: 13:17 Constitutional: This is a well developed, well nourished patient who is awake, alert, rt and in no acute distress. Head/Face: Normocephalic, atraumatic. Chest/axilla: Normal chest wall appearance and motion. Nontender with no deformity. No lesions are appreciated. Cardiovascular: Regular rate and rhythm with a normal S1 and S2. No gallops, murmurs, or rubs. Normal PMI, no JVD. No pulse deficits. Respiratory: Lungs have equal breath sounds bilaterally, clear to auscultation and percussion. No rales, rhonchi or wheezes noted. No increased work of breathing, no retractions or nasal flaring. Skin: Warm, dry with normal turgor. Normal color with no rashes, no lesions, and no evidence of cellulitis. MS/ Extremity: Pulses equal, no cyanosis. Neurovascular intact. Full, normal range of motion. 13:17 Abdomen/GI: Mild tenderness to the lower quadrants without rebound, guarding, distention, Vital Signs: 11:06 BP 164 / 91; Pulse 74; Resp 17; Temp 98.2(O); Pulse Ox 100% on R/A; MAP 113 mmHg; tm6 Weight 51.26 kg; Height 4 ft. 11 in. ; Pain 5/10; 11:06 Body Mass Index 22.82 (51.26 kg, 149.86 cm) tm6 11:06 Pain Scale: Adult tm6 MDM: 11:12 Medical Screening Exam initiated rt 16:49 Differential Diagnosis Ovarian cyst, diverticulitis, colitis, nonspecific abdominal rt pain. Data reviewed: vital signs, nurses notes, lab test result(s), radiologic studies. Management of patient was discussed with the following: [employer]: Discussed with Dr. Ferguson, with normal workup, no indications for admission at this time, patient is stable for outpatient care, will follow-up with Dr. Ramos, primary care in the outpatient setting.. Independent interpretation of the following test(s) in the Emergency Department CT Scan: My interpretation is No bowel obstruction seen on interpretation of CT scan images. Counseling: I had a detailed discussion with the patient and/or guardian regarding the historical points, exam findings, and any diagnostic results supporting the discharge/admit diagnosis, lab results, radiology results, the need for outpatient follow up, to return to the emergency department if symptoms worsen or persist or if there are any questions or concerns that arise at home. Response to treatment: the patient's symptoms have markedly improved after treatment. 05/27 11:13 Order name: CBC with Diff; Complete Time: 12:23 rt 05/27 11:13 Order name: CMP; Complete Time: 12:23 rt 05/27 11:13 Order name: Lipase; Complete Time: 12:23 rt 05/27 11:13 Order name: Urinalysis w/ reflexes; Complete Time: 12:23 rt 05/27 11:13 Order name: CT Abd/Pelvis - IV Contrast Only; Complete Time: 12:33 rt 05/27 11:13 Order name: IV Saline Lock; Complete Time: 11:33 rt 05/27 11:13 Order name: Labs collected and sent; Complete Time: 11:33 rt Administered Medications: 12:42 Drug: TORadol - Ketorolac IVP 15 mg IVP once Route: IVP; Site: left antecubital; ss 13:30 Follow up: Response: No adverse reaction; Pain is decreased ss Disposition Summary: 05/27/24 13:30 Discharge Ordered Notes: Location: Home rt Problem: new rt Symptoms: have improved rt Condition: Stable rt Diagnosis - Abdominal pain, unspecified rt Followup: rt - With: Private Physician - When: 2 - 3 days - Reason: Discharge Instructions: - Discharge Summary Sheet rt - Abdominal Pain, Adult rt Forms: - Medication Reconciliation Form rt - Antibiotic Education rt - Prescription Opioid Use rt - Patient Portal Instructions rt - Leadership Thank You Letter rt Signatures: Dispatcher [employer] EDMS Abigail Hernandez RN RN ss Rommel Cano MD MD rt Shavonne Wen RN RN tm6 Corrections: (The following items were deleted from the chart) 11:13 11:13 CBC+H.LAB.BRZ ordered. EDMS EDMS 11:13 11:13 COMPREHENSIVE METABOLIC PANEL+C.LAB.BRZ ordered. EDMS EDMS 11:13 11:13 LIPASE+C.LAB.BRZ ordered. EDMS EDMS 11:13 11:13 Urinalysis+U.LAB.BRZ ordered. EDMS EDMS 11:13 11:13 Abdomen Pelvis W Con+CT.RAD.BRZ ordered. EDMS EDMS
[2024-05-27 14:32] VITALS: BP 164/91; TEMP 98.2; O2SAT 100
== END 2024-05-27 14:04 | disposition home or self-care (01) ==
LOC: ER 10:21
DX: R10.30 Lower abdominal pain, unspecified (principal); I10 Essential (primary) hypertension; Z87.442 Personal history of urinary calculi
CPT/HCPCS: 85025; 81001; 36415; 83690; 80053; 74177; 96374; 99284; Q9967

== ENCOUNTER 2024-07-04 23:20 | Emergency (ER) | payer BC ==
[2024-07-05 00:45] LABS: PT Prothrombin Time 10.9 SECONDS (9.4-12.5); Protime INR 0.97
[2024-07-05 00:47] LABS: Absolute Basophils 0.1 K/uL (0-0.5); Absolute Eosinophils 0.2 K/uL (0-0.5); Absolute Lymphocytes (CBC) 2.9 K/uL (0.7-4.9); Absolute Monocytes 0.7 K/uL (0.1-1.3); Absolute Neutrophil 4.4 K/uL (1.8-8.0); Eosinophils % 1.9 % (0-4.4); Hematocrit 36.4 % (36.0-45.0); Lymphocytes % 35.1 % (15.3-44.8); MCV 89.7 fL (80-100); MPV 10.4 fL (7.6-11.3); Monocytes % 8.5 % (3.3-12.3); Neutrophils % 53.5 % (41.7-73.7); Nucleated Red Blood Cells % 0.4 % (0-0); Platelets 228 thou/uL (152-406); RBC Red Blood Cell Count 4.06 M/uL (3.86-4.86); Red Cell Distribution Width 12.9 % (12.1-15.2)
[2024-07-05 01:09] LABS: MCHC 35.7 g/dL (32.0-36.0)
[2024-07-05 01:26] LABS: Anion Gap 7.6 mEq/L (5.0-15.0); Magnesium 2.2 mg/dL (1.6-2.4); Potassium 3.6 mEq/L (3.5-5.1)
--- NOTE | 2024-07-05 01:36 | ER ---
Nurse's Notes [facility] Name: Suri Franco Age: 68 yrs Sex: Female : 1955 Arrival Date: 07/04/2024 Time: 23:20 Bed 7 Private MD: Diagnosis: Chest pain, unspecified;Essential (primary) hypertension Presentation: 07/04 23:32 Chief complaint: Patient states: chest pain that started around 2200 and head pressure bm8 that has been ongoing for 2 days. Coronavirus screen: Vaccine status: Patient reports receiving the 1st dose of the Covid vaccine. Client denies travel out of the [place] in the last 14 days. At this time, the client does not indicate any symptoms associated with coronavirus-19. Ebola Screen: Patient negative for fever greater than or equal to 101.5 degrees Fahrenheit, and additional compatible Ebola Virus Disease symptoms Patient denies exposure to infectious person. Patient denies travel to an Ebola-affected area in the 21 days before illness onset. No symptoms or risks identified at this time. Initial Sepsis Screen: Does the patient meet any 2 criteria? No. Patient's initial sepsis screen is negative. Does the patient have a suspected source of infection? No. Patient's initial sepsis screen is negative. Risk Assessment: Do you want to hurt yourself or someone else? Patient reports no desire to harm self or others. Onset of symptoms was July 04, 2024 at 22:00. 23:32 Method Of Arrival: Ambulatory bm8 23:32 Acuity: HANSA 3 bm8 Triage Assessment: 23:33 Headache History: Denies prior headaches. General: Appears in no apparent distress. bm8 uncomfortable, Behavior is calm, cooperative, appropriate for age. Pain: Pain currently is 2 out of 10 on a pain scale. Pain began 2 hours ago. Neuro: Level of Consciousness is awake, alert, obeys commands, Oriented to person, place, time, situation. 07/05 01:52 Pain: Also complains of headache. dd2 Historical: - Allergies: 07/04 23:33 Augmentin; bm8 23:33 Codeine; bm8 23:33 Keflex; bm8 - PMHx: 23:33 Diverticulitis; Hypertensive disorder; Kidney stones; bm8 - PSHx: 23:33 section; bm8 - Immunization history:: Adult Immunizations up to date. - Infectious Disease History:: Denies. - Social history:: Smoking status: Patient denies any tobacco usage or history of. Screenin:48 [facility] ED Fall Risk Assessment (Adult) History of falling in the last 3 months, dd2 including since admission No falls in past 3 months (0 pts) Confusion or Disorientation No (0 pts) Intoxicated or Sedated No (0 pts) Impaired Gait No (0 pts) Mobility Assist Device Used No (0 pt) Altered Elimination No (0 pt) Score/Fall Risk Level 0 - 2 = Low Risk Oriented to surroundings, Maintained a safe environment, Educated pt \T\ family on fall prevention, incl call for assistance when getting out of bed, Assessed \T\ reinforced patient's understanding of fall precautions, Hourly rounding (assess needs \T\ fall precautionary measures) done. Abuse screen: Denies threats or abuse. Nutritional screening: No deficits noted. Tuberculosis screening: No symptoms or risk factors identified. Assessment: 23:48 General: Appears in no apparent distress. Behavior is calm, cooperative, appropriate dd2 for age. Pain: Complains of pain in face and chest Pain does not radiate. Pain currently is 2 out of 10 on a pain scale. Neuro: No deficits noted. Level of Consciousness is awake, alert, obeys commands, Oriented to person, place, time, situation, Appropriate for age Cover Stitch Machine Operator are equal bilaterally Moves all extremities. Gait is steady, Speech is normal, Facial symmetry appears normal. Neuro: Reports headache in entire. Cardiovascular: Reports chest pain, Heart tones S1 S2 Patient's skin is warm and dry. Rhythm is regular. Respiratory: No deficits noted. Airway is patent Respiratory effort is even, unlabored, Respiratory pattern is regular, symmetrical. GI: No deficits noted. No signs and/or symptoms were reported involving the gastrointestinal system. Abdomen is non-distended. : No deficits noted. No signs and/or symptoms were reported regarding the genitourinary system. EENT: No deficits noted. No signs and/or symptoms were reported regarding the EENT system. EENT:. Derm: No deficits noted. No signs and/or symptoms reported regarding the dermatologic system. Musculoskeletal: No deficits noted. No signs and/or symptoms reported regarding the musculoskeletal system. Circulation, motion, and sensation intact. Range of motion: intact in all extremities. Vital Signs: 23:32 BP 171 / 82; Pulse 83; Resp 18; Temp 98.1; Pulse Ox 94% ; Weight 51.26 kg; Height 4 ft. bm8 11 in. ; Pain 2/10; 07/05 00:52 BP 165 / 79; Pulse 71; Resp 18 S; Pulse Ox 99% on R/A; br2 01:48 BP 158 / 75; Pulse 70; Resp 16; Temp 98.1; Pulse Ox 100% ; dd2 07/04 23:32 Body Mass Index 22.82 (51.26 kg, 149.86 cm) bm8 07/04 23:32 Pain Scale: Adult bm8 [place] Coma Score: 07/04 23:48 Eye Response: spontaneous(4). Motor Response: obeys commands(6). Verbal Response: dd2 oriented(5). Total: 15. ED Course: 23:25 Patient arrived in ED. im 23:29 Jordon Matamoros DO is Attending Physician. ms3 23:33 JESSE MATSON, RN is Primary Nurse. dd2 23:33 Triage completed. bm8 23:33 Arm band placed on right wrist. Patient placed in waiting room. bm8 23:48 Patient has correct armband on for positive identification. Bed in low position. Call dd2 light in reach. Side rails up X 1. Client placed on continuous cardiac and pulse oximetry monitoring. NIBP monitoring applied. monitoring tech on. Door closed. Noise minimized. Warm blanket given. Pillow given. Verbal reassurance given. 23:53 EKG done, by inventory technician. af3 07/05 00:12 Basic Metabolic Panel Sent. dd2 00:12 CBC with Diff Sent. dd2 00:12 Magnesium Sent. dd2 00:12 PT-INR Sent. dd2 00:12 Troponin HS Sent. dd2 00:12 No provider procedures requiring assistance completed. Initial lab(s) drawn, by ny, dd2 sent to lab. Inserted saline lock: 20 gauge in right antecubital area, using aseptic technique. Blood collected. Flushed with 10 mL NS. Patient maintains SpO2 saturation greater than 95% on room air. 00:26 XRAY Chest (1 view) In Process Unspecified. EDMS 01:35 Nick Mancera MD is Referral Physician. ms3 01:51 IV discontinued, intact, bleeding controlled, No redness/swelling at site. Pressure br2 dressing applied. 01:52 Provided Education on: D/C INSTRUTIONS. dd2 Administered Medications: No medications were administered Medication: 07/04 23:48 VIS not applicable for this client. dd2 Outcome: 07/05 01:35 Discharge ordered by . ms3 01:51 Discharged to home ambulatory, br2 01:51 Condition: good 01:51 Discharge instructions given to patient, Instructed on discharge instructions, follow up and referral plans. Demonstrated understanding of instructions, follow-up care, 01:52 Patient left the ED. dd2 Signatures: Dispatcher [employer] EDMS Jordon Matamoros DO DO ms3 Sayda Matias Brad, RN RN bm8 Sue Day RN RN br2 Sheila Munroe af3 JESSE MATSON, RN RN dd2
--- NOTE | 2024-07-05 01:36 | EDPHYS ---
Physician Documentation [facility] Name: Suri Franco Age: 68 yrs Sex: Female : 1955 Arrival Date: 07/04/2024 Time: 23:20 Bed 7 Private MD: ED Physician Jordon Matamoros HPI: 07/04 23:47 This 68 yrs old Female presents to ER via Ambulatory with complaints of ms3 Headache, Chest Pain, High Blood Pressure. 23:47 Suri Franco is a 68-year-old female who presents to the Emergency Department with chest ms3 pressure that she rates as a 2 on a scale of 1 to 10. She reports that the chest pressure has been occurring off and on for the past two weeks. She mentions that drinking frederick mat seems to help alleviate the symptoms. Additionally, she reports experiencing headaches off and on for the last couple of days. She denies any nausea or vomiting.. Historical: - Allergies: 23:33 Augmentin; bm8 23:33 Codeine; bm8 23:33 Keflex; bm8 - PMHx: 23:33 Diverticulitis; Hypertensive disorder; Kidney stones; bm8 - PSHx: 23:33 section; bm8 - Immunization history:: Adult Immunizations up to date. - Infectious Disease History:: Denies. - Social history:: Smoking status: Patient denies any tobacco usage or history of. ROS: 23:47 Constitutional: Negative for fever, and chills. ms3 23:47 Respiratory: Negative for shortness of breath, cough, wheezing, and pleuritic chest pain, Abdomen/GI: Negative for abdominal pain, nausea, vomiting, diarrhea, and constipation, MS/Extremity: Negative for injury and deformity, Skin: Negative for injury, rash, and discoloration, 23:47 Cardiovascular: Positive for chest pain, Exam: 23:47 Constitutional: This is a well developed, well nourished patient who is awake, alert, ms3 and in no acute distress. Neck: Trachea midline, no cervical lymphadenopathy. Supple, full range of motion without nuchal rigidity, or vertebral point tenderness. No Meningismus. Chest/axilla: Normal chest wall appearance and motion. Nontender with no deformity. Cardiovascular: Regular rate and rhythm with a normal S1 and S2. No gallops, murmurs, or rubs. Normal PMI, no JVD. No pulse deficits. Respiratory: Lungs have equal breath sounds bilaterally, clear to auscultation and percussion. No rales, rhonchi or wheezes noted. No increased work of breathing, no retractions or nasal flaring. Abdomen/GI: Soft, non-tender, with normal bowel sounds. No distension or tympany. No guarding or rebound. No evidence of tenderness throughout. Skin: Warm, dry with normal turgor. Normal color with no rashes, no lesions, and no evidence of cellulitis. 07/05 00:22 ECG was reviewed by the Attending Physician. ms3 Vital Signs: 07/04 23:32 BP 171 / 82; Pulse 83; Resp 18; Temp 98.1; Pulse Ox 94% ; Weight 51.26 kg; Height 4 ft. bm8 11 in. ; Pain 2/10; 07/05 00:52 BP 165 / 79; Pulse 71; Resp 18 S; Pulse Ox 99% on R/A; br2 01:48 BP 158 / 75; Pulse 70; Resp 16; Temp 98.1; Pulse Ox 100% ; dd2 07/04 23:32 Body Mass Index 22.82 (51.26 kg, 149.86 cm) bm8 07/04 23:32 Pain Scale: Adult bm8 [place] Coma Score: 07/04 23:48 Eye Response: spontaneous(4). Motor Response: obeys commands(6). Verbal Response: dd2 oriented(5). Total: 15. MDM: 23:47 Medical Screening Exam initiated ms3 23:48 Differential diagnosis: abnormal EKG, acute myocardial infarction, chest wall pain. ms3 07/05 01:36 HEART Score: History: Slightly Suspicious (0), ECG: Normal (0), Age: > or = 65 years ms3 (2), Risk Factors: 1 or 2 risk factors (1), Troponin: < or = 1 x Normal Limit (0), Total Score = 3. Data reviewed: vital signs, nurses notes, lab test result(s), EKG, radiologic studies, and as a result, I will discharge patient. Independent interpretation of the following test(s) in the Emergency Department EKG: See my EKG interpretation above X-Ray: My interpretation is CXR image reviewed by me does not reveal PTX or Pulmonary Edema. Counseling: I had a detailed discussion with the patient and/or guardian regarding the historical points, exam findings, and any diagnostic results supporting the discharge/admit diagnosis, lab results, radiology results, the need for outpatient follow up, to return to the emergency department if symptoms worsen or persist or if there are any questions or concerns that arise at home. Special discussion: Based on the patient's history, exam, and Dx evaluation, there is no indication for emergent intervention or inpatient Tx. It is understood by the patient/guardian that if the Sx's persist or worsen they need to return immediately for re-evaluation. ED course: Discussed normal troponin, EKG, chest x-ray with patient. Patient to follow-up with Dr. Mancera in 2 to 3 days. Patient understands agrees with plan. All questions were answered. Return precautions discussed include worsening symptoms, or any other concerns. On reevaluation patient is alert and oriented x 4, no apparent distress, nontoxic-appearing, speaking full sentences.. 07/04 23:30 Order name: Basic Metabolic Panel; Complete Time: 01:29 ms3 07/04 23:30 Order name: CBC with Diff; Complete Time: 01:15 ms3 07/04 23:30 Order name: Magnesium; Complete Time: 01:29 ms3 07/04 23:30 Order name: PT-INR; Complete Time: 01:15 ms3 07/04 23:30 Order name: Troponin HS; Complete Time: 01:29 ms3 07/04 23:30 Order name: XRAY Chest (1 view) ms3 07/04 23:30 Order name: Cardiac monitoring; Complete Time: 00:12 ms3 07/04 23:30 Order name: EKG - Nurse/Tech; Complete Time: 23:53 ms3 07/04 23:30 Order name: IV Saline Lock; Complete Time: 00:12 ms3 07/04 23:30 Order name: Labs collected and sent; Complete Time: 00:12 ms3 07/04 23:30 Order name: O2 Per Protocol; Complete Time: 00:12 ms3 07/04 23:30 Order name: O2 Sat Monitoring; Complete Time: 00:12 ms3 EC:22 Rate is 71 beats/min. Rhythm is regular. QRS Strum is Normal. LA interval is normal. QRS ms3 interval is normal. Clinical impression: Normal ECG. Interpreted by me. Reviewed by me. Administered Medications: No medications were administered Disposition Summary: 07/05/24 01:35 Discharge Ordered Notes: Location: Home ms3 Condition: Stable ms3 Diagnosis - Chest pain, unspecified ms3 - Essential (primary) hypertension ms3 Followup: ms3 - With: Nick Mancera MD - When: 2 - 3 days - Reason: Recheck today's complaints Discharge Instructions: - Discharge Summary Sheet ms3 - Nonspecific Chest Pain, Adult ms3 - Hypertension, Adult ms3 Forms: - Medication Reconciliation Form ms3 - Antibiotic Education ms3 - Prescription Opioid Use ms3 - Patient Portal Instructions ms3 - Leadership Thank You Letter ms3 Signatures: Dispatcher [employer] EDMS Jordon Matamoros DO DO ms3 Rodriguez Gómez, RN RN bm8 Corrections: (The following items were deleted from the chart) 07/04 23:31 23:31 Chest Single View+RAD.RAD.BRZ ordered. EDMS EDMS
[2024-07-05 02:24] VITALS: TEMP 98.1
[2024-07-05 02:40] VITALS: BP 158/75; O2SAT 100
--- NOTE | 2024-07-05 05:22 | RAD REPORT ---
EXAM: XR Chest, 1 View CLINICAL HISTORY: Chest pain. TECHNIQUE: Frontal view of the chest. COMPARISON: XR Chest 09/11/2023. FINDINGS: Lungs: Unremarkable. No consolidation. Pleural space: Unremarkable. No pneumothorax. Heart: Unremarkable. No cardiomegaly. Mediastinum: Unremarkable. Normal mediastinal contour. Bones/joints: Thoracolumbar scoliosis and multilevel spondylosis. No acute fracture. Vasculature: Thoracic aortic atherosclerosis. IMPRESSION: No acute disease. Electronically signed by: Andrade Ricks MD 07/05/2024 01:23 AM [facility] Due to temporary technical issues with the PACS/Personal reporting system, reports are being suma d by the in-house radiologist without review as a courtesy to ensure prompt reporting the interpreting radiologist is fully responsible for the content of the report. Transcribed Date/Time: 07/05/2024 5:21 AM
--- NOTE | 2024-07-08 12:07 | EKG ---
Test Date: 2024-07-04 Test Time: 23:48:19 Claims Support Specialist: AF MEASUREMENT RESULTS: Intervals: Rate: 71 MI: 150 QRSD: 82 QT: 412 QTc: 447 [place]: P: 69 MI: 150 QRS: 66 T: 68 INTERPRETIVE STATEMENTS: Normal sinus rhythm Possible Left atrial enlargement Borderline ECG Compared to ECG 04/08/2024 14:16:47 No significant changes Electronically Signed On 07-08-24 12:04:27 [employer] by Kwesi Briseno
== END 2024-07-05 01:52 | disposition home or self-care (01) ==
LOC: ER 23:20
DX: R07.89 Other chest pain (principal); I10 Essential (primary) hypertension
CPT/HCPCS: 36415; 71045; 80048; 83735; 84484; 85025; 85610; 93005; 99284

== ENCOUNTER 2024-11-24 16:03 | Observation (INO) | payer BC, OTHER ==
[2024-11-24] MEDS ORDERED: DIPHENHYDRAMINE 25 MG TAB/CAP PO PRN (16:45)
[2024-11-24] MEDS ORDERED: ONDANSETRON 4 MG/2 ML VIAL IV PRN (16:46)
[2024-11-24] MEDS ORDERED: POLYETHYL GLY 3350 17 GM/DOSE PO PRN (16:46)
[2024-11-24] MEDS ORDERED: SODIUM CHLORIDE 0.9% 10ML INJ IV PRN (16:49)
[2024-11-24 16:53] VITALS: BMI 23.0
--- NOTE | 2024-11-24 17:07 | RAD REPORT ---
Procedure: Chest Pa And Lat (2 Views) HISTORY: Abdominal pain COMPARISON: 2023 FINDINGS: The lungs appear clear of acute infiltrate. No significant pleural effusion noted. The heart is normal size. IMPRESSION: No acute abnormality is displayed.
[2024-11-24] MEDS: NACHLORIDE 0.45% 1,000 ML IV SCH (19:25)
[2024-11-24] MEDS: CEFOXITIN 1 GM in NA CHLORIDE 0.9% 50 ML IVPB SCH (19:26)
[2024-11-24 19:49] LABS: Absolute Basophils 0.1 K/uL (0-0.5); Absolute Eosinophils 0.1 K/uL (0-0.5); Absolute Lymphocytes (CBC) 2.3 K/uL (0.7-4.9); Absolute Monocytes 0.7 K/uL (0.1-1.3); Absolute Neutrophil 5.5 K/uL (1.8-8.0); Basophils % 1.2 % (0-1.3); Eosinophils % 1.4 % (0-4.4); Hematocrit 38.8 % (36.0-45.0); Hemoglobin 13.4 g/dL (12.0-15.0); Lymphocytes % 26.1 % (15.3-44.8); MCH 29.9 pg (27.0-35.0); MCHC 34.5 g/dL (32.0-36.0); MCV 86.7 fL (80-100); Neutrophils % 63.3 % (41.7-73.7); Nucleated Red Blood Cells % 0.2 % (0-0); Platelets 262 thou/uL (152-406); RBC Red Blood Cell Count 4.48 M/uL (3.86-4.86); Red Cell Distribution Width 12.9 % (12.1-15.2)
[2024-11-24 20:50] LABS: ALT/SGPT 21 U/L (13-56); AST/SGOT 16 U/L (15-37); Albumin 3.8 g/dL (3.4-5.0); Alkaline Phosphatase 81 U/L (45-117); Anion Gap 8.3 mEq/L (5.0-15.0); BUN Blood Urea Nitrogen 8 mg/dL (7-18); Bicarbonate 28 mEq/L (21-32); Bilirubin Direct < 0.2 mg/dL (0-0.2); Bilirubin Indirect, Calculated 0.2 mg/dL (0.2-0.8); Bilirubin Total 0.4 mg/dL (0.2-1.0); Globulin 3.7 g/dL (2.3-3.5); Glomerular Filtration Rate 96 ml/min (=/>90); Glucose Level 131 mg/dL (74-106); Lipase 26 U/L (13-75); Magnesium 2.1 mg/dL (1.6-2.4); Phosphorus 2.7 mg/dL (2.5-4.9); Potassium 4.3 mEq/L (3.5-5.1); Protein, Total 7.5 g/dL (6.4-8.2); Sodium Level 138 mEq/L (136-145); Thyroid Stimulating Hormone 0.693 uIU/mL (0.358-3.740)
[2024-11-24 20:58] LABS: Specific Gravity 1.006 (1.005-1.030); Urine Bilirubin NEGATIVE (Negative); Urine Blood Negative (Negative); Urine Clarity Clear (Clear); Urine Color Colorless (Yellow); Urine Glucose NEGATIVE (Negative); Urine Ketones NEGATIVE (Negative); Urine Microscopic Reflex YN NO UMIC; Urine Nitrite NEGATIVE (Negative); Urine Protein NEGATIVE (Negative); Urine Urobilinogen Normal (Normal); Urine pH 7.5 (5.0-7.0)
[2024-11-24 22:11] VITALS: O2SAT 100
--- NOTE | 2024-11-24 22:18 | RAD REPORT ---
EXAMINATION: CT ABDOMEN AND PELVIS WITH CONTRAST CLINICAL INDICATION: Abdominal pain TECHNIQUE: CT abdomen and pelvis was performed, after the administration of 100 cc Isovue-300.. Sagit carlos and coronal reconstructions were obtained. One or more of the following dose reduction techniques were used: Automated exposure control, adjustment of the mA and kV according to patient si ze, and iterative reconstruction. Unless otherwise specified, incidental findings do not require dedicated imaging follow-up. [id number]. Oral contrast was not given which limits evaluation of bowel and appendix. COMPARISON: .2023 FINDINGS: Liver, spleen, pancreas, adrenals and kidneys appear unremarkable No evidence of diverticulitis. Hysterectomy. No adnexal mass. Duodenal diverticulum. Small umbilical hernia : IMPRESSION: No acute abnormality displayed
[2024-11-25] MEDS: ACETAMINOPHEN 325 MG TABLET PO PRN (01:50)
[2024-11-25 06:47] LABS: Absolute Basophils 0.1 K/uL (0-0.5); Absolute Eosinophils 0.2 K/uL (0-0.5); Absolute Lymphocytes (CBC) 2.5 K/uL (0.7-4.9); Absolute Monocytes 0.9 K/uL (0.1-1.3); Basophils % 0.8 % (0-1.3); Eosinophils % 3.2 % (0-4.4); Hematocrit 35.4 % (36.0-45.0); Hemoglobin 12.4 g/dL (12.0-15.0); Lymphocytes % 32.7 % (15.3-44.8); MCH 30.3 pg (27.0-35.0); MCHC 34.9 g/dL (32.0-36.0); MCV 86.7 fL (80-100); MPV 9.6 fL (7.6-11.3); Monocytes % 11.7 % (3.3-12.3); Neutrophils % 51.6 % (41.7-73.7); Platelets 257 thou/uL (152-406); RBC Red Blood Cell Count 4.08 M/uL (3.86-4.86); Red Cell Distribution Width 12.8 % (12.1-15.2)
[2024-11-25 07:07] LABS: Anion Gap 8.9 mEq/L (5.0-15.0); Magnesium 2.1 mg/dL (1.6-2.4); Potassium 3.9 mEq/L (3.5-5.1)
[2024-11-25] MEDS: MAGNESIUM OXIDE 400 MG TAB PO SCH (08:09)
[2024-11-25] MEDS: PANTOPRAZOLE 40MG TABLET PO SCH (08:09)
[2024-11-25] MEDS: lisinopriL 10 MG TAB PO SCH (08:09)
[2024-11-25] MEDS: PANTOPRAZOLE 40 MG INJ IVP SCH (08:10)
[2024-11-25] MEDS: SERTRALINE HCL 50 MG TAB PO SCH (08:10)
[2024-11-25] MEDS: ENOXAPARIN 40 MG/0.4 ML SQ SCH (08:14)
[2024-11-25] MEDS ORDERED: HOME MED 1 EA UNK (Magnesium Oxide [Magnesium] 500 MG Capsule) PO SCH (09:00)
--- NOTE | 2024-11-25 10:36 | RAD REPORT ---
EXAMINATION: MRI CERVICAL SPINE WITHOUT CONTRAST CLINICAL INDICATION: Female, 69 years old. radicular pain TECHNIQUE: Multiplanar multisequence MR images were obtained of the cervical spine without intravenou s contrast. Unless otherwise specified, incidental findings do not require dedicated imaging follow-up. COMPARISON: No prior exam. FINDINGS: ALIGNMENT: The cervical spine has normal alignment. BONE: Vertebral bodies are normal in height. There is a normal marrow signal pattern. CORD: The cervical spinal cord is normal in size, contour and signal intensity. BRAIN: The included intracranial structures are grossly normal. The craniocervical junction is normal . SOFT TISSUE: The paraspinal soft tissues are normal. EVALUATION OF THE INDIVIDUAL LEVELS: C2-3: Minimal disc bulge. C3-4: Mild central disc bulge slightly attenuates the anterior subarachnoid space. C4-5: 5 mm central disc herniation is seen attenuating the anterior subarachnoid space and contacting and deforming the anterior cord. No significant foraminal stenosis. C5-6: Small central disc herniation is present measuring 3 mm, attenuating the anterior cervical spac e contacting anterior cord. No significant foraminal stenosis. C6-7: Broad-based posterior disc bulge asymmetric to the left where there is focal protrusion measuri ng 5 mm suspected. This attenuates the anterior subarachnoid space. No significant canal or foraminal stenosis. C7-T1: Unremarkable. IMPRESSION: Multilevel moderately severe cervical degenerative spondylosis as detailed with multilevel disc herni ations as described above.
[2024-11-25 12:31] VITALS: BP 143/66; TEMP 98.5
--- NOTE | 2024-11-25 13:02 | P.DS ---
Admission Date: 11/24/24 Discharge Date: 11/25/24 Disposition: ROUTINE DISCHARGE Discharge Condition: FAIR Brief History of Present Illness: JAMI HAS CHRONIC ABDOMEN COMPLAINTS. 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 SHE COMPLAINS OF BLOOD INURINE BUT URINE IS CLEAN HERE. CT IS NEGATIVE. SHE IS PAINFREE NOW. I SEND IN ANTIBIOTICS CIPRO AND FLAGYL FOR HER AND SHE WILL FU IN OFFICE IN ONE WEEK. SHE SHOULD GO TO UROGYNECOLOGIST DR. THOMPSON. Vital Signs/Physical Exam: Temp Pulse Resp BP Pulse Ox 98.5 F 84 84 H 143/66 H 98 11/25/24 12:00 11/25/24 12:00 11/25/24 12:00 11/25/24 12:00 11/25/24 12:00 Laboratory Data at Discharge: WBC 7.80 thou/uL (4.3-10.9) 11/25/24 06:15 Hgb 12.4 g/dL (12.0-15.0) 11/25/24 06:15 Hct 35.4 % (36.0-45.0) L 11/25/24 06:15 Plt Count 257 thou/uL (152-406) 11/25/24 06:15 APTT 35.6 SECONDS (27.2-37.4) 11/24/24 19:40 Sodium 139 mEq/L (136-145) 11/25/24 06:15 Potassium 3.9 mEq/L (3.5-5.1) 11/25/24 06:15 BUN 8 mg/dL (7-18) 11/25/24 06:15 Creatinine 0.61 mg/dL (0.55-1.02) 11/25/24 06:15 Glucose 99 mg/dL (74-106) 11/25/24 06:15 Phosphorus 2.7 mg/dL (2.5-4.9) 11/24/24 19:40 Magnesium 2.1 mg/dL (1.6-2.4) 11/25/24 06:15 Total Bilirubin 0.4 mg/dL (0.2-1.0) 11/24/24 19:40 AST 16 U/L (15-37) 11/24/24 19:40 ALT 21 U/L (13-56) 11/24/24 19:40 Alkaline Phosphatase 81 U/L (45-117) 11/24/24 19:40 Lipase 26 U/L (13-75) 11/24/24 19:40 Home Medications: Atorvastatin Calcium [Lipitor] 10 mg PO DAILY 04/08/24 Bacillus Coagulans [Probiotics] 1 each PO DAILY 04/08/24 Magnesium Oxide [Magnesium] 400 mg PO DAILY 04/08/24 Pantoprazole [Protonix Tab] 40 mg PO DAILY 04/08/24 Sertraline [Zoloft] 25 mg PO DAILY 04/08/24 Triamcinolone Acetonide [Triderm] 1 kiran TOP BID 04/08/24 lisinopriL [Zestril] 10 mg PO DAILY 04/08/24 Followup: Devonte Lerner MD [Primary Care Provider] - 1 Week
--- NOTE | 2024-11-27 11:52 | EKG ---
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
== END 2024-11-25 14:28 | disposition home or self-care (01) ==
LOC: 2ND 16:21 → INTOOBSV 16:21
PROVIDERS: ADMIT Internal Medicine; ATTEND Internal Medicine
DX: R10.84 Generalized abdominal pain (principal); R11.0 Nausea
CPT/HCPCS: 93005; 85025 ×2; 80048 ×2; 36415; 83735 ×2; 84100; 80076; 85730; 82652; 84443; 81003; 82607; 83690; 74177; 71046; 72141; Q9967; J2470; J0694 ×3; G0379; G0378 ×2; J1650